=== PATIENT | male | born 1980 | race Caucasian/White ===

== ENCOUNTER 2023-12-19 11:27 | Emergency (ER) | payer OTHER, SELFPAY ==
[2023-12-19 11:32] VITALS: BP 160/68; PULSE 73; RESP 16; TEMP 37; O2SAT 100
--- NOTE | 2023-12-19 11:44 | ED.WOUNDLAC ---
HPI - Wound/Laceration General Chief Complaint: Wound/Laceration <BARB Gallagher Last Filed: 12/19/23 12:23> Stated Complaint: finger laceration <BARB Gallagher Last Filed: 12/19/23 12:23> Time Seen by Provider: 12/19/23 11:35 <BARB Gallagher Last Filed: 12/19/23 12:23> Source: patient <BARB Gallagher Last Filed: 12/19/23 12:23> Mode of arrival: ambulatory <BARB Gallagher Last Filed: 12/19/23 12:23> Limitations: no limitations <BARB Gallagher Last Filed: 12/19/23 12:23> History of Present Illness HPI narrative: This is a 43 year old male that presents to the ER for right 2nd finger laceration sustained yesterday. Reports [place] out the wound and closed it with super glue. He presented today for further management. He is unsure of his last tetanus vaccination. Denies decreased ROM or numbness. <BARB Gallagher Last Filed: 12/19/23 12:23> Related Data Home Medications: Home Medications Medication Instructions Recorded Confirmed fnzzpuii-nny-qgkqt acid 0.4 tablet PO 08/20/22 08/26/22 mg-lycopene 300 mcg-lutein 250 mcg tablet (Complete Multivitamin Adult 50 Plus) omega 5-hav-nxd-fish oil 1,200 mg cap PO 08/20/22 08/26/22 (144 mg-216 mg) capsule (Fish Oil) <BARB Gallagher Last Filed: 12/19/23 12:23> Allergies/Adverse Reactions: Allergies Allergy/AdvReac Type Severity Reaction Status Date / Time No Known Allergies Allergy Verified 12/19/23 11:34 <BARB Gallagher Last Filed: 12/19/23 12:23> Review of Systems Review of Systems: CONSTITUTIONAL: Denies fever SKIN: Reports laceration MUSCULOSKELETAL: Denies joint pain, or myalgia. NEUROLOGIC: Denies numbness <Nury Crow PA-C - Last Filed: 12/19/23 12:23> All systems reviewed & are unremarkable except as noted in HPI and below <Nury Crow PA-C - Last Filed: 12/19/23 12:23> PMFSH Past Medical History Medical History: Medical History Allergic rhinitis, unspecified Anxiety Major depressive disorder, recurrent, unspecified Obstructive sleep apnea <BARB Gallagher Last Filed: 12/19/23 12:23> Surgical History Surgical History: Surgical History S/P tendon repair right middle finger 1989 <Nury Crow PA-C - Last Filed: 12/19/23 12:23> Family History Family History: Family History Father No problems noted. Mother No problems noted. <Nury Crow PA-C - Last Filed: 12/19/23 12:23> Social History Social History: Social History Smoking status: Never smoker Alcohol intake: current Substance use: never Substance use type: does not use Lack of Transportation: No Lack of Food: Never True Current Housing: I Have Housing Concerned About Future Housing: No Difficulty Paying Gas/Electric Bills: No Difficulty Paying for Meds: No Currently Unemployed: No Education: Master's Degree or Higher Difficulty w/ Childcare or Family Care: No Living arrangements: with family Occupation/Education: occupation Gender identity (if verbalized by the patient): Male Sexual Orientation (if Verbalized by the Patient): Straight or Heterosexual Spiritual care concerns: No Agree to blood products: Yes <BARB Gallagher Last Filed: 12/19/23 12:23> Exam Narrative: GENERAL: Well-appearing, well-nourished, and in no acute distress. HEAD: Normocephalic, atraumatic. EYES: EOMI. EXTREMITIES: Normal range of motion. No edema. Right second finger with laceration of the proximal and middle phalanx, covered in a thick layer of glue SKIN: Warm, dry, no rash. NE
[2023-12-19] MEDS: TETANUS,DIPHTHERIA,AC PERTUSSIS ADULT (0.5 ML) BOOSTRIX IM (11:55)
[2023-12-19] MEDS: CEPHALEXIN 500 MG CAPSULE PO (12:44)
[2023-12-19] MEDS: levoFLOXacin 750 MG TABLET PO (12:45)
== END 2023-12-19 12:51 | disposition home or self-care (01) ==
PROVIDERS: Emergency Provider Physician Assistant; PCP Family Medicine
DX: S61.211A Laceration without foreign body of left index finger without damage to nail, initial encounter (principal); Z23 Encounter for immunization; G47.33 Obstructive sleep apnea (adult) (pediatric); W26.0XXA Contact with knife, initial encounter
CPT/HCPCS: 90471; 90715; 99283; A9270

== ENCOUNTER 2024-07-31 07:39 | Inpatient (IN) | payer OTHER, SELFPAY ==
[2024-07-31] VITALS (24 sets, daily range): BP systolic 123–158; BP diastolic 72–98; PULSE 88–98; RESP 15–151; TEMP 36.3–37.7; O2SAT 91–100; BMI 27.1
--- NOTE | ~2024-07-31 | CT_ITS ---
CT abdomen pelvis w con Ordering provider: Mani Moon III, DO History: 43 years Male with . rlq pain . Comparison: None. Technique: CT abdomen and pelvis with IV and without oral contrast. Automated exposure control and it erative reconstruction technique were employed. The dose-length product was 592.50 mGy-cm. 100 mL Omn ipaque 350 was given IV. Findings: VISUALIZED LOWER CHEST: Normal. UPPER ABDOMINAL ORGANS: Liver: Fat infiltration Gallbladder: Normal. Spleen: Normal. Stomach/duodenum: Normal. Pancreas: Normal. Adrenals: Normal. Kidneys: Normal. PELVIC ORGANS: The bladder is underfilled with thickened wall. Evaluation for cystitis advised. BOWEL AND MESENTERY: Colon: No evidence of diverticulitis. Fat stranding seen in the right lower quadrant with a hypodensi ty which is most likely small appendicular abscess measuring 2.7 x 1.9 CNM. Clinical correlation and follow-up advised. Small Bowel: Normal. No obstruction. Peritoneum/mesentery: No free air or free fluid. No mesenteric lymphadenopathy. Small lymph nodes in the right lower quadrant with the largest measuring 1 cm. RETROPERITONEUM: Normal aorta. No retroperitoneal lymphadenopathy. MUSCULOSKELETAL: Superficial soft tissues: The superficial soft tissues are normal. Bones: Normal spine. IMPRESSION: 1. Highly suggestive of appendicitis with appendicolith or abscess in the right lower quadrant area clinical correlation and follow-up advised. 2. Fat infiltration of the liver. Physician: Mani Moon III, DO Was notified with the result of the patient at 8:46 AM on July 31, 2024. Reviewed, dictated and finalized at location A. ORK TECHNOLOGY INSTRUCTOR IMPRESSION: 1. Highly suggestive of appendicitis with appendicolith or abscess in the righ t lower quadrant area clinical correlation and follow-up advised. 2. Fat infiltration of the liver. Physician: Mani Moon III, DO Was notified with the result of the patient at 8:46 AM on July 31, 2024.
--- NOTE | ~2024-07-31 | CT_ITS ---
EXAMINATION: CT abdomen pelvis wo con DATE: 08/04/2024 13:47 INDICATION: Increased drainage from surgical drain. TECHNIQUE: Computed tomography (CT) of the abdomen and pelvis was performed without intravenous contr ast. Automated exposure control and iterative reconstruction technique were employed. The dose-length product was 889.02 mGy-cm. COMPARISON: CT abdomen pelvis 07/31/2024 FINDINGS: The visualized portions of the lung bases demonstrate mild atelectasis. No pleural effusion . The heart size is normal. No pericardial effusion. There is diffuse hepatic steatosis. There is con trast in the gallbladder, which is normal in size. The spleen, pancreas, adrenal glands, and kidneys are normal. There is no urolithiasis. There are changes of appendectomy. There are multiple dilated l oops of small bowel without focal transition point, consistent with adynamic ileus. There are no path ologically enlarged lymph nodes. There is fat stranding in the right lower quadrant with foci of extr aluminal gas. There is a 2.1 x 0.9 x 3.1 cm fluid collection in the right lower quadrant. There is a surgical drain in the right lower quadrant. There is mild chronic anterior wedging of multiple verteb ral bodies. There is a hemangioma in T9 vertebral body. There is mild thoracic and lumbar spondylosis . Midline skin diane are noted. IMPRESSION: 1. 2.1 x 0.9 x 3.1 cm postoperative fluid collection in the right lower quadrant. 2. Adynamic ileus. Reviewed, dictated and finalized at location A. SWIND INSTRUMENT REPAIRER IMPRESSION: 1. 2.1 x 0.9 x 3.1 cm postoperative fluid collection in the right lower quadran t. 2. Adynamic ileus.
--- NOTE | ~2024-07-31 | XR_ITS ---
XR abdomen/kub 1V Ordering provider: JUAN J Alegria History: . Ileus, postop ruptured appendix . Comparison: None. FINDINGS: BOWEL: Dilated small bowel loops are seen. Postoperative changes and drainage catheter is seen. ORGANOMEGALY: None. SIGNIFICANT PATHOLOGIC CALCIFICATIONS: None. OTHER: No free air is seen under the diaphragm. IMPRESSION: Dilated small bowel loops suggestive of ileus versus obstruction. Follow-up advised. Reviewed, dictated and finalized at location A. RIAL RECLAIMER IMPRESSION: Dilated small bowel loops suggestive of ileus versus obstruction. Follow-up adv ised.
--- NOTE | ~2024-07-31 | XR_ITS ---
Supine and upright views of the abdomen Clinical history: Ileus COMPARISON: 08/02/2024 Findings: Multiple dilated small bowel loops are again present. Surgical diane are noted. No free a ir evident. No abnormal mass lesion or calcification is seen. Osseous structures are intact. Impression: Multiple dilated small bowel loops. Correlate for small bowel obstruction versus ileus. Reviewed, dictated and finalized at [facility]. BRUSH ASSEMBLER Impression: Multiple dilated small bowel loops. Correlate for small bowel obstruction versu s ileus.
[2024-07-31 08:02] LABS: Basophils Absolute Auto 0.1 K/mm3 (0.0-0.1); Basophils Percent Auto 0.5 % (0.2-1.2); Eosinophils Percent Auto 0.2 % (0-4.4); Hematocrit 44.4 % (42.0-52.0); Hemoglobin 15.1 g/dL (14.0-18.0); Immature Granulocyte Absolute 0.05 K/mm3 (0.00-0.031); Immature Granulocyte Percent A 0.4 % (0-0.5); Lymphocytes Absolute Auto 2.13 K/mm3 (0.9-3.2); Lymphocytes Percent Auto 16.9 % (18.3-44.2); Mean Corpuscular Hemoglobin 30.3 pg (26-34); Mean Platelet Volume 8.5 fl (7.4-10.4); Monocytes Absolute Auto 1.4 K/mm3 (0.1-0.6); Platelet Count Result 290 k/mm3 (150-375); Red Blood Count 4.99 M/mm3 (4.6-6.20); Red Cell Distribution Width 12.2 % (11.5-14.5); White Blood Count 12.6 K/mm3 (4.5-10.0)
--- NOTE | 2024-07-31 08:04 | ED.ABDPAIN ---
HPI - Abdominal Pain General Chief Complaint: Abdominal Pain Stated Complaint: abdominal pain Time Seen by Provider: 07/31/24 07:59 History of Present Illness HPI narrative: Pt presents with rlq abdominal pain this morning. Pt says he had stomach flu a couple of weeks ago and had intermittent, crampy abdominal pain off and on since but localized to rlq this morning. Pt feels bloated as well. Related Data Home Medications ?Medication ?Instructions ?Recorded ?Confirmed ?Last Taken ?Type hcdmztad-seu-sxpta acid 0.4 tablet PO 08/20/22 08/26/22 Unknown History mg-lycopene 300 mcg-lutein 250 mcg tablet (Complete Multivitamin Adult 50 Plus) omega 7-raj-pjj-fish oil 1,200 mg cap PO 08/20/22 08/26/22 Unknown History (144 mg-216 mg) capsule (Fish Oil) Allergies Allergy/AdvReac Type Severity Reaction Status Date / Time No Known Allergies Allergy Verified 07/31/24 15:15 Review of Systems Review of Systems: All systems reviewed & are unremarkable except as noted in HPI and below PMFSH Past Medical History Medical History (Updated 07/31/24 @ 12:28 by Mani Moon III, DO) Obstructive sleep apnea Major depressive disorder, recurrent, unspecified Anxiety Allergic rhinitis, unspecified Surgical History Surgical History S/P tendon repair right middle finger 1990 Family History Family History Father No problems noted. Mother No problems noted. Social History Social History Smoking status: Never smoker Alcohol intake: current Alcohol use details: 6-10 beers per day Substance use: never Substance use type: does not use Lack of Transportation: No Lack of Food: Never True Current Housing: I Have Housing Concerned About Future Housing: No Difficulty Paying Gas/Electric Bills: No Difficulty Paying for Meds: No Currently Unemployed: No Education: Master's Degree or Higher Difficulty w/ Childcare or Family Care: No Living arrangements: with family Occupation/Education: occupation Gender identity (if verbalized by the patient): Male Sexual Orientation (if Verbalized by the Patient): Straight or Heterosexual Spiritual care concerns: No Agree to blood products: Yes Exam Const: General: healthy appearing and no acute distress Nutritional Appearance: well nourished Orientation/consciousness: patient oriented x3 Limitations: no limitations Resp: Effort & Inspection: normal respiratory effort Auscultation: clear to auscultation bilaterally Cardio: Rate: regular rate Rhythm: regular rhythm GI: GI Palp: Yes Soft to palpation and Yes Tenderness to palpation present (GI) (rlq but lateral to mcburney's) Auscultation: normal bowel sounds : General: Yes bladder normal to palpation Back/Spine/Pelvis: Back: no CVA tenderness Skin: General skin exam: normal color Rashes: no rashes Wounds: no wounds Neuro: General: patient oriented x3, moves all extremities, no meningeal signs, no focal motor deficits and CN's II-XI intact bilaterally Cranial nerves: Yes Nystagmus not present Speech: normal speech Extrem: General: normal to inspection and no clubbing, cyanosis or edema Psych: Mental Status: mental status grossly normal Affect: normal affect Attitude: cooperative Course Vital Signs Vital signs: Vital Signs Temperature 98.9 F 07/31/24 07:50 Pulse Rate 98 07/31/24 07:50 Respiratory Rate 18 07/31/24 07:50 Blood Pressure 143/91 H 07/31/24 07:50 Pulse Oximetry 100 07/31/24 07:50 Oxygen Delivery Room Air 07/31/24 07:50 Temperature 99.8 F H 07/31/24 17:36 Pulse Rate 92 07/31/24 17:45 Respiratory Rate 151 H 07/31/24 17:45 Blood Pressure 126/76 07/31/24 17:45 Pulse Oximetry 97 07/31/24 17:45 Oxygen Delivery Simple Face Mask 07/31/24 17:45 Oxygen Flow Rate 5 07/31/24 17:45 MDM - Abdominal Pain MDM Narrative Medical decision making narrative: Pt presents with rlq abdomina pain. Pt has had intermittent abd pain for two weeks since Gi bug now in rlq. will need to get labs and ua and CT to rule out appy. Pt has appendicitis with possible abscess. discussed with dr mendez and will check with OR. Lab Data 07/31/24 07:54 07/31/24 07:54 Labs: Lab Results 12/16/24 12/16/24 12/16/24 Range/Units 07:54 08:37 08:41 WBC 12.6 H (4.5-10.0) K/mm3 RBC 4.99 (4.6-6.20) M/mm3 Hgb 15.1 (14.0-18.0) g/dL Hct 44.4 (42.0-52.0) % MCV 89.0 (80-100) fl MCH 30.3 (26-34) pg MCHC 34.0 (32-36) g/dl RDW 12.2 (11.5-14.5) % Plt Count 290 (150-375) k/mm3 MPV 8.5 (7.4-10.4) fl Immature Gran % (Auto) 0.4 (0-0.5) % Neut % (Auto) 71.0 (45.5-73.1) % Lymph % (Auto) 16.9 L (18.3-44.2) % [place] % (Auto) 11.0 H (2.6-8.5) % Eos % (Auto) 0.2 (0-4.4) % Baso % (Auto) 0.5 (0.2-1.2) % Lymph # (Auto) 2.13 (0.9-3.2) K/mm3 [place] # (Auto) 1.4 H (0.1-0.6) K/mm3 Eos # (Auto) 0.0 (0-0.3) K/mm3 Baso # (Auto) 0.1 (0.0-0.1) K/mm3 Abs Immat Gran (auto) 0.05 H (0.00-0.031) K/mm3 Absolute Neuts (auto) 9.0 H (1.3-6.7) K/mm3 Absolute Nucleated RBC 0.000 (0.0-0.012) K/mm3 Nucleated RBC % 0.0 (0.0-0.2) % PT (11.1-14.7) Seconds INR APTT (22.3-36.8) Seconds Sodium 136 L (137-145) mmol/L Potassium 4.2 (3.4-5.0) mmol/L Chloride 105 (98-107) mmol/L Carbon Dioxide 26 (22-30) mmol/L Anion Gap 5 (4-12) mmol/L BUN 9 (9-20) mg/dL Creatinine 0.90 (0.7-1.3) mg/dL Estim Creat Clear Calc 107 ml/min Estimated GFR > 60 (59 - ) Glucose 119 H (65-110) mg/dL Lactic Acid 0.7 (0.7-2.0) mmol/L Calcium 9.3 (8.4-10.2) mg/dL Total Bilirubin 1.1 (0.2-1.3) mg/dL AST 29 (17-59) U/L ALT 34 (6-50) U/L Alkaline Phosphatase 62 (38-126) U/L Total Protein 8.0 (6.3-8.2) g/dL Albumin 4.6 (3.5-5.1) g/dL Lipase 88 (23-300) U/L Urine Color Yellow (Yellow) Urine Appearance Clear (Clear) Urine pH 7.5 (5.0-9.0) Ur Specific [place] > 1.045 H (1.001-1.035) Urine Protein Trace (Negative) mg/dL Urine Glucose (UA) Negative (Negative) mg/dL Urine Ketones Negative (Negative) mg/dL Ur Blood (Man) Negative (Negative) Urine Nitrate Negative (Negative) Urine Bilirubin Negative (Negative) Urine Urobilinogen 0.2 (<2.0) mg/dL Leukocyte Esterase Rfl Negative (Negative) MARLA/UL Urine RBC 0-2 (0-2) /hpf Urine WBC 0-5 (0-3) /hpf Ur Squamous Epith Cells None seen (Few) /hpf Urine Bacteria None seen /hpf Urine Casts 0-2 07/31/24 Range/Units 08:49 WBC (4.5-10.0) K/mm3 RBC (4.6-6.20) M/mm3 Hgb (14.0-18.0) g/dL Hct (42.0-52.0) % MCV (80-100) fl MCH (26-34) pg MCHC (32-36) g/dl RDW (11.5-14.5) % Plt Count (150-375) k/mm3 MPV (7.4-10.4) fl Immature Gran % (Auto) (0-0.5) % Neut % (Auto) (45.5-73.1) % Lymph % (Auto) (18.3-44.2) % [place] % (Auto) (2.6-8.5) % Eos % (Auto) (0-4.4) % Baso % (Auto) (0.2-1.2) % Lymph # (Auto) (0.9-3.2) K/mm3 [place] # (Auto) (0.1-0.6) K/mm3 Eos # (Auto) (0-0.3) K/mm3 Baso # (Auto) (0.0-0.1) K/mm3 Abs Immat Gran (auto) (0.00-0.031) K/mm3 Absolute Neuts (auto) (1.3-6.7) K/mm3 Absolute Nucleated RBC (0.0-0.012) K/mm3 Nucleated RBC % (0.0-0.2) % PT 14.4 (11.1-14.7) Seconds INR 1.1 APTT 25.4 (22.3-36.8) Seconds Sodium (137-145) mmol/L Potassium (3.4-5.0) mmol/L Chloride (98-107) mmol/L Carbon Dioxide (22-30) mmol/L Anion Gap (4-12) mmol/L BUN (9-20) mg/dL Creatinine (0.7-1.3) mg/dL Estim Creat Clear Calc ml/min Estimated GFR (59 - ) Glucose (65-110) mg/dL Lactic Acid (0.7-2.0) mmol/L Calcium (8.4-10.2) mg/dL Total Bilirubin (0.2-1.3) mg/dL AST (17-59) U/L ALT (6-50) U/L Alkaline Phosphatase (38-126) U/L Total Protein (6.3-8.2) g/dL Albumin (3.5-5.1) g/dL Lipase (23-300) U/L Urine Color (Yellow) Urine Appearance (Clear) Urine pH (5.0-9.0) Ur Specific [place] (1.001-1.035) Urine Protein (Negative) mg/dL Urine Glucose (UA) (Negative) mg/dL Urine Ketones (Negative) mg/dL Ur Blood (Man) (Negative) Urine Nitrate (Negative) Urine Bilirubin (Negative) Urine Urobilinogen (<2.0) mg/dL Leukocyte Esterase Rfl (Negative) MARLA/UL Urine RBC (0-2) /hpf Urine WBC (0-3) /hpf Ur Squamous Epith Cells (Few) /hpf Urine Bacteria /hpf Urine Casts Imaging Data Radiologist's impression: ITS Impressions Abdomen/Pelvis CT 07/31/24 08:31 IMPRESSION: 1. Highly suggestive of appendicitis with appendicolith or abscess in the right lower quadrant area clinical correlation and follow-up advised. 2. Fat infiltration of the liver. Physician: Mani Moon III, DO Was notified with the result of the patient at 8:46 AM on July 31, 2024. Discharge Plan Discharge Clinical Impression: Acute appendicitis with perforation, localized peritonitis, and abscess Patient Disposition: Still a Patient Condition: Stable
[2024-07-31 08:15] LABS: Alanine Aminotransferase 34 U/L (6-50); Albumin Level 4.6 g/dL (3.5-5.1); Alkaline Phosphatase 62 U/L (38-126); Anion Gap 5 mmol/L (4-12); Aspartate Amino Transferase 29 U/L (17-59); Bilirubin,Total 1.1 mg/dL (0.2-1.3); Blood Urea Nitrogen 9 mg/dL (9-20); Calcium 9.3 mg/dL (8.4-10.2); Carbon Dioxide 26 mmol/L (22-30); Chloride 105 mmol/L (98-107); Estimated CRCL calculation 107 ml/min; Estimated Glomerular Filt Rate > 60; Glucose 119 mg/dL (65-110); Lipase 88 U/L (23-300); Potassium 4.2 mmol/L (3.4-5.0); Sodium 136 mmol/L (137-145)
[2024-07-31] MEDS: KETOROLAC 30 MG/ML VIAL (*BKC) IV PUSH (08:49)
[2024-07-31 08:50] LABS: Add Urine Microscopic? YES; Appearance Urine Clear (Clear); Bacteria Urine None Seen /hpf; Bilirubin Urine Negative (Negative); Blood Urine Negative (Negative); Color Urine Yellow (Yellow); Glucose Urine UA Negative (Negative); Ketones Urine Negative (Negative); Leukocyte Esterase Ur Negative LEU/UL (Negative); Nitrate Urine Negative (Negative); Non Pathogenic Casts 0-2; Protein Urine Trace mg/dL (Negative); RBC Urine 0-2 /hpf (0-2); Specific Grav Ur > 1.045 (1.001-1.035); Squamous Epithelial Cell Urine None Seen /hpf (Few); Urobilinogen Urine 0.2 mg/dL (<2.0); WBC Urine 0-5 /hpf (0-3); pH Urine 7.5 (5.0-9.0)
[2024-07-31 09:01] LABS: Lactic Acid Reflex 0.7 mmol/L (0.7-2.0)
[2024-07-31 09:06] LABS: INR 1.1; Partial Thromboplastin Time 25.4 Seconds (22.3-36.8); Prothrombin Time 14.4 Seconds (11.1-14.7)
--- NOTE | 2024-07-31 11:34 | P.HP_ITS ---
H&P: HPI History of Present Illness Date/Time: 07/31/24 11:34 Chief Complaint: Abdominal pain Narrative: This is a 43-year-old man who presented to the ED today due to complaints of abdominal pain. He reports having periumbilical and upper abdominal pain that started 2 weeks ago. Initially, his pain was very severe and he had nausea and dry heaving. He thought he had food poisoning and chose to monitor his symptoms at home. Over the next 24-48 hours, his abdominal pain was less severe and he overall was feeling better. Since that acute episode, he has had persistent cramping periumbilical abdominal pain that was intermittent throughout the day. He has felt bloated and reports abdominal distension and intermittent nausea. His bowels have been moving normally. He denies any vomiting, diarrhea, fever, or chills. Yesterday, he felt the bloating was worse and his cramping abdominal pain actually woke him up throughout the night. This morning, when he woke up, he noticed some right lower quadrant tenderness, which prompted him to come to the ED for evaluation due to concerns for appendicitis. Vital signs stable in the ED. Labs showed a white blood cell count [id number]. Lactic acid normal. CT scan shows findings highly suggestive of appendicitis with right lower quadrant abscess measuring 2.7 cm. He is now seen in the ED for surgical evaluation. Review of Systems Review of Systems: All systems reviewed & are unremarkable except as noted in HPI and below PMFSH Past Medical History Medical History (Updated 07/31/24 @ 11:39 by JUAN J Alegria) Obstructive sleep apnea Major depressive disorder, recurrent, unspecified Anxiety Allergic rhinitis, unspecified Surgical History Surgical History S/P tendon repair right middle finger 1989 Family History Family History Father No problems noted. Mother No problems noted. Social History Social History Smoking status: Never smoker Alcohol intake: current Alcohol use details: 6-10 beers per day Substance use: never Substance use type: does not use Lack of Transportation: No Lack of Food: Never True Current Housing: I Have Housing Concerned About Future Housing: No Difficulty Paying Gas/Electric Bills: No Difficulty Paying for Meds: No Currently Unemployed: No Education: Master's Degree or Higher Difficulty w/ Childcare or Family Care: No Living arrangements: with family Occupation/Education: occupation Gender identity (if verbalized by the patient): Male Sexual Orientation (if Verbalized by the Patient): Straight or Heterosexual Spiritual care concerns: No Agree to blood products: Yes Meds Home Medications and Allergies Home Medications ?Medication ?Instructions ?Recorded ?Confirmed ?Type gwcblgaq-mdp-bjkhy acid 0.4 tablet PO 08/20/22 08/26/22 History mg-lycopene 300 mcg-lutein 250 mcg tablet (Complete Multivitamin Adult 50 Plus) omega 5-dkd-hgy-fish oil 1,200 mg cap PO 08/20/22 08/26/22 History (144 mg-216 mg) capsule (Fish Oil) cephalexin 500 mg capsule 500 mg PO Q6H 5 days #20 caps 12/19/23 Rx levofloxacin 750 mg tablet 750 mg PO DAILY 5 days #5 tabs 12/19/23 Rx Allergies Allergy/AdvReac Type Severity Reaction Status Date / Time No Known Allergies Allergy Verified 07/31/24 07:40 Vital Signs Vital Signs - 24 hr 07/31/24 07:50 07/31/24 11:01 Temperature 98.9 F Pulse Rate 98 94 Respiratory Rate 18 18 Blood Pressure 143/91 H 129/87 Pulse Oximetry 100 98 Oxygen Delivery Room Air Exam Const: General: comfortable and no acute distress Nutritional Appearance: average body habitus Orientation/consciousness: patient oriented x3 HENMT: Head: normocephalic and atraumatic Ears: hearing grossly normal bilaterally Mouth: Yes moist mucous membranes Eyes: General: appearance normal, both eyes and all related structures Pupils: Equal, round and reactive pupils present Neck: Neck: normal visual inspection and full ROM Resp: Effort & Inspection: no respiratory distress Auscultation: clear to auscultation bilaterally Cardio: Rate: regular rate Rhythm: regular rhythm Peripheral pulses: Peripheral pulses 2+ throughout GI: Inspection: non-distended, no scars and no visible herniation GI Palp: Yes Soft to palpation, Yes Tenderness to palpation present (GI) (Right lower quadrant), No Guarding due to palpation present (GI), Yes No hepatosplenomegaly present and No Rebound tenderness present Percussion: Yes normal to percussion Auscultation: normal bowel sounds Skin: General skin exam: normal color Neuro: General: moves all extremities and no focal motor deficits Speech: normal speech Motor exam (neuro): 5/5 motor strength present throughout Extrem: General: normal to inspection and no edema Psych: Mental Status: mental status grossly normal Attitude: cooperative Insight: Good insight present (Psych) Judgement: Good judgement present (Psych) H&P: Results Labs Labs: Short CBC 07/31/24 Range/Units 07:54 WBC 12.6 H (4.5-10.0) K/mm3 Hgb 15.1 (14.0-18.0) g/dL Hct 44.4 (42.0-52.0) % Plt Count 290 (150-375) k/mm3 BMP 07/31/24 07:54 Sodium 136 L Potassium 4.2 Chloride 105 Carbon Dioxide 26 BUN 9 Creatinine 0.90 Glucose 119 H Calcium 9.3 Liver Function 07/31/24 Range/Units 07:54 Total Bilirubin 1.1 (0.2-1.3) mg/dL AST 29 (17-59) U/L ALT 34 (6-50) U/L Alkaline Phosphatase 62 (38-126) U/L Albumin 4.6 (3.5-5.1) g/dL Urine 07/31/24 Range/Units 08:41 Urine Color Yellow (Yellow) Urine Appearance Clear (Clear) Urine pH 7.5 (5.0-9.0) Ur Specific [place] > 1.045 H (1.001-1.035) Urine Protein Trace (Negative) mg/dL Urine Glucose (UA) Negative (Negative) mg/dL Imaging CT scan - abdomen: Radiologist's impression: ITS Impressions Abdomen/Pelvis CT 07/31/24 08:31 IMPRESSION: 1. Highly suggestive of appendicitis with appendicolith or abscess in the right lower quadrant area clinical correlation and follow-up advised. 2. Fat infiltration of the liver. Physician: Mani Moon III, DO Was notified with the result of the patient at 8:46 AM on July 31, 2024. Assessment and Plan Assessment and plan (1) Acute appendicitis with perforation, localized peritonitis, and abscess: Code(s): K35.33 - Acute appendicitis with perforation, localized peritonitis, and gangrene, with abscess Status: Acute Assessment and Plan: CT scan reviewed with radiologist. The distal appendix is visualized and dilated with inflammatory stranding around this area. He also has what appears to be an abscess measuring a little over 2 cm at the base of the appendix where it appears perforated. He otherwise appears stable and is not septic. He has been having ongoing symptoms for about 2 weeks. I discussed the case with Dr. Franz and discussed both nonoperative versus surgical treatment options in detail with the patient. We could consider monitoring with IV antibiotics and serial abdominal exams and labs versus proceeding with a laparoscopic appendectomy and continue IV antibiotics and monitoring. Discussed that he would likely have a KENNEDY drain following surgery. We discussed at length the risks versus benefits of both options. We also discussed the details of the procedure, risks, benefits, alternatives, and expected recovery. He wishes to proceed with surgery. He will be admitted to our service and started on IV antibiotics. We will keep him NPO for now and continue IV fluids, analgesics, and antiemetics as needed. (2) Chronic recurrent major depressive disorder: Code(s): F33.9 - Major depressive disorder, recurrent, unspecified Status: Acute (3) Heavy alcohol use: Code(s): F10.90 - Alcohol use, unspecified, uncomplicated Status: Acute Assessment and Plan: Patient admits to drinking 6-10 beers per day. No current withdrawal symptoms, but will continue to monitor. Recommend CIWA postoperatively. (4) Obstructive sleep apnea: Code(s): G47.33 - Obstructive sleep apnea (adult) (pediatric) Status: Chronic Plan I have discussed the patient's case and plan of care with Dr. Franz.
--- NOTE | 2024-07-31 12:41 | PC.NURSE ---
Spoke with OR nurse, Eula, and she states they will try and get the patient for surgery by 1430 this afternoon.
[2024-07-31] MEDS: PIPERACILLN/TAZ 3.375GM/NS50ML 3.375 GM/50 ML BAG IVPB ×2 (13:20→20:04)
--- NOTE | 2024-07-31 13:59 | WPDHPUPDATE1 ---
History and Physical Update Update Date/Time: 07/31/24 13:59 History and Physical has been reviewed, including an updated exam of the patient. There are NO changes in the patient's condition. Risks, benefits, and alternatives have been discussed and questions answered. Patient agrees to proceed with procedure.
--- NOTE | 2024-07-31 14:32 | ADMGEN ---
This patient, Yehuda Jones, was admitted to [facility] Surg Room 300-01. Patient/family oriented to hospital policies and general routines including ID bracelet, bed and alarms, visiting hours, pain management, procedures, bathroom and other care routines, personal items, smoking policy, room service/diet, and visiting hours. Information on how to activate the Rapid Response Team has been discussed. Patient/Family are encouraged to report perceived risks to care and to ask questions if they do not understand what they are told or what they should do.
--- NOTE | 2024-07-31 14:59 | P.PNAN_ITS ---
Anes - Initial Pre Proc Eval Procedure: Operation Date: 07/31/24 16:00 Proposed Procedures p Laparoscopic Appendectomy - Berna Franz MD Date/Time: 07/31/24 14:59 Surgeon: Berna Franz MD Pre Op Diagnosis: appendicitis Patient Data Age: 43 Gender: M Height: 1.85 m Weight: 93.2 kg Last Vital Signs Temp 37.2 C 07/31/24 07:50 Pulse 91 07/31/24 12:29 Resp 18 07/31/24 12:29 BP 131/98 H 07/31/24 12:29 Pulse Ox 98 07/31/24 12:29 O2 Del Method Room Air 07/31/24 07:50 Allergies Allergy/AdvReac Type Severity Reaction Status Date / Time No Known Allergies Allergy Verified 07/31/24 15:15 Home Medications ?Medication ?Instructions ?Recorded ?Confirmed ?Type xcbeqntq-qfz-wtbri acid 0.4 tablet PO 08/20/22 08/26/22 History mg-lycopene 300 mcg-lutein 250 mcg tablet (Complete Multivitamin Adult 50 Plus) omega 6-kku-wty-fish oil 1,200 mg cap PO 08/20/22 08/26/22 History (144 mg-216 mg) capsule (Fish Oil) cephalexin 500 mg capsule 500 mg PO Q6H 5 days #20 caps 12/19/23 Rx levofloxacin 750 mg tablet 750 mg PO DAILY 5 days #5 tabs 12/19/23 Rx Laboratory Tests 07/31/24 07/31/24 07/31/24 07:54 08:37 08:41 WBC 12.6 H K/mm3 (4.5-10.0) RBC 4.99 M/mm3 (4.6-6.20) Hgb 15.1 g/dL (14.0-18.0) Hct 44.4 % (42.0-52.0) MCV 89.0 fl (80-100) MCH 30.3 pg (26-34) MCHC 34.0 g/dl (32-36) RDW 12.2 % (11.5-14.5) Plt Count 290 k/mm3 (150-375) MPV 8.5 fl (7.4-10.4) Immature Gran % (Auto) 0.4 % (0-0.5) Neut % (Auto) 71.0 % (45.5-73.1) Lymph % (Auto) 16.9 L % (18.3-44.2) [place] % (Auto) 11.0 H % (2.6-8.5) Eos % (Auto) 0.2 % (0-4.4) Baso % (Auto) 0.5 % (0.2-1.2) Lymph # (Auto) 2.13 K/mm3 (0.9-3.2) [place] # (Auto) 1.4 H K/mm3 (0.1-0.6) Eos # (Auto) 0.0 K/mm3 (0-0.3) Baso # (Auto) 0.1 K/mm3 (0.0-0.1) Abs Immat Gran (auto) 0.05 H K/mm3 (0.00-0.031) Absolute Neuts (auto) 9.0 H K/mm3 (1.3-6.7) Absolute Nucleated RBC 0.000 K/mm3 (0.0-0.012) Nucleated RBC % 0.0 % (0.0-0.2) PT INR APTT Sodium 136 L mmol/L (137-145) Potassium 4.2 mmol/L (3.4-5.0) Chloride 105 mmol/L (98-107) Carbon Dioxide 26 mmol/L (22-30) Anion Gap 5 mmol/L (4-12) BUN 9 mg/dL (9-20) Creatinine 0.90 mg/dL (0.7-1.3) Estim Creat Clear Calc 107 ml/min Estimated GFR > 60 (59 - ) Glucose 119 H mg/dL (65-110) Lactic Acid 0.7 mmol/L (0.7-2.0) Calcium 9.3 mg/dL (8.4-10.2) Total Bilirubin 1.1 mg/dL (0.2-1.3) AST 29 U/L (17-59) ALT 34 U/L (6-50) Alkaline Phosphatase 62 U/L (38-126) Total Protein 8.0 g/dL (6.3-8.2) Albumin 4.6 g/dL (3.5-5.1) Lipase 88 U/L (23-300) Urine Color Yellow (Yellow) Urine Appearance Clear (Clear) Urine pH 7.5 (5.0-9.0) Ur Specific [place] > 1.045 H (1.001-1.035) Urine Protein Trace mg/dL (Negative) Urine Glucose (UA) Negative mg/dL (Negative) Urine Ketones Negative mg/dL (Negative) Ur Blood (Man) Negative (Negative) Urine Nitrate Negative (Negative) Urine Bilirubin Negative (Negative) Urine Urobilinogen 0.2 mg/dL (<2.0) Leukocyte Esterase Rfl Negative MARLA/UL (Negative) Urine RBC 0-2 /hpf (0-2) Urine WBC 0-5 /hpf (0-3) Ur Squamous Epith Cells None seen /hpf (Few) Urine Bacteria None seen /hpf Urine Casts 0-2 07/31/24 08:49 WBC RBC Hgb Hct MCV MCH MCHC RDW Plt Count MPV Immature Gran % (Auto) Neut % (Auto) Lymph % (Auto) [place] % (Auto) Eos % (Auto) Baso % (Auto) Lymph # (Auto) [place] # (Auto) Eos # (Auto) Baso # (Auto) Abs Immat Gran (auto) Absolute Neuts (auto) Absolute Nucleated RBC Nucleated RBC % PT 14.4 Seconds (11.1-14.7) INR 1.1 APTT 25.4 Seconds (22.3-36.8) Sodium Potassium Chloride Carbon Dioxide Anion Gap BUN Creatinine Estim Creat Clear Calc Estimated GFR Glucose Lactic Acid Calcium Total Bilirubin AST ALT Alkaline Phosphatase Total Protein Albumin Lipase Urine Color Urine Appearance Urine pH Ur Specific [place] Urine Protein Urine Glucose (UA) Urine Ketones Ur Blood (Man) Urine Nitrate Urine Bilirubin Urine Urobilinogen Leukocyte Esterase Rfl Urine RBC Urine WBC Ur Squamous Epith Cells Urine Bacteria Urine Casts Patient hx anesthesia problems: post op nausea/vomiting Family hx anesthesia problems: none Results Review: All pre-operative results and documents have been reviewed as part of the pre- operative evaluation. [facility] Past Medical History Medical History (Updated 07/31/24 @ 12:28 by Mani Moon III, DO) Obstructive sleep apnea Major depressive disorder, recurrent, unspecified Anxiety Allergic rhinitis, unspecified Surgical History Surgical History S/P tendon repair right middle finger 1989 Family History Family History Father No problems noted. Mother No problems noted. Social History Social History Smoking status: Never smoker Alcohol intake: current Alcohol use details: 6-10 beers per day Substance use: never Substance use type: does not use Lack of Transportation: No Lack of Food: Never True Current Housing: I Have Housing Concerned About Future Housing: No Difficulty Paying Gas/Electric Bills: No Difficulty Paying for Meds: No Currently Unemployed: No Education: Master's Degree or Higher Difficulty w/ Childcare or Family Care: No Living arrangements: with family Occupation/Education: occupation Gender identity (if verbalized by the patient): Male Sexual Orientation (if Verbalized by the Patient): Straight or Heterosexual Spiritual care concerns: No Agree to blood products: Yes Anes - Eval Final PreProcedure Day of Procedure 07/31/24 14:59 Patient weight: overweight Heart: regular rate and rhythm Lungs: clear to auscultation Airway: Mallampati scale class II Neurological: alert and oriented Last oral intake: >/= 8 hours ASA classification: III Emergent: no Anesthetic plan: proceed Anesthesia type and monitoring: general ETT and standard monitoring Results Review: All pre-operative results and documents have been reviewed as part of the pre- operative evaluation. Informed Consent: The patient's anesthetic plan and its attendant risks and benefits were discussed with the patient/family/POA. Questions were solicited and answers provided to the satisfaction of the patient/family/POA.
--- NOTE | 2024-07-31 17:50 | W.PM.PROC2 ---
Procedure Note - Detailed Date of Procedure 07/31/24 Pre-op Diagnosis Acute appendicitis Post-op Diagnosis Other ( right lower quadrant inflammatory mass) Procedure Performed diagnostic laparoscopy converted to hand assisted laparoscopic ileocecectomy with mobilization of the hepatic flexure Surgeon Berna Franz MD Anesthesia General and Local Indications 43-year-old male presenting to the emergency department complaining of a 2 week history of lower abdominal pain. Workup in the emergency department, including imaging, was suggestive of acute appendicitis with possible perforation. Findings Right lower quadrant inflammatory mass involving the terminal ileum and cecum, appendix not obviously visualized Description of Procedure The patient was taken to the operating room and placed in the supine position. After adequate induction of general anesthesia, the patient was prepped and draped in the normal sterile fashion. A time-out was then done to verify the patient's identity, as well as the procedure being performed. I began by making a 5 mm incision in the infraumbilical region. Through this a Veress needle was placed in the peritoneal cavity. CO2 gas was then insufflated. After adequate pneumoperitoneum was achieved, the Veress needle was removed and a 5 mm Optiview trocar was placed under direct visualization. I then placed a laparoscopic through this trocar site under direct visualization placed a further 5 mm suprapubic port, as well as a 12 mm port in the left lower abdomen. At this point the cecum was identified, a large inflammatory mass was noted in the right lower quadrant. This mass was covered and tethered by the terminal ileum, as well as the cecum. Using very careful blunt dissection, slowly began to peel away the covering intestines. The cecum and terminal ileum covering the area was very friable and inflamed. I then was able to identify a large inflammatory mass with some purulent fluid within the cavity. I continued to dissect this area and could not visualize anything resembling the appendix. Given this finding, the decision was made to place a hand port for further dissection. The 5 mm infraumbilical port was converted to a hand port. I then was able to place my hand in and examine the right lower quadrant. This inflammatory mass was still very tethered to this area and difficult to dissect. There was also noted to be friablabilty of the terminal ileum and cecum in the area of the dissection. I then made the decision to go ahead and perform an ileocecectomy. I took down the lateral attachments of the cecum and ascending colon. I then went ahead and took down the hepatic flexure to allow mobilization for anastomosis. The terminal ileum proximal to the area of inflammation was noted to be unremarkable. I then desufflated the abdomen and extracorporeal lysed the area in the right lower quadrant. Even upon grossly examining the area, I was still unable to visualize the appendix. I then transected the ileum proximal to the area of inflammation with a GHISLAINE 75 stapler. The distal cecum and ascending colon were transected using the 75 GHISLAINE stapler. Then used the LigaSure device to take down the mesenteric attachments of the ileo cecectomy specimen. The specimen was then sent to pathology for further review. I then went ahead and completed a [id number] functional end-to-end anastomosis between the ileum and ascending colon. Once completed the anastomosis was noted to be tension-free and widely patent. I then copiously irrigated the abdomen. No other obvious pathology was noted. I then placed a drain in the right lower quadrant coming out through the 5 mm suprapubic port. The fascia of the hand port site was closed with 1. PDS sutures x2. All incisions were then closed with skin diane. The patient tolerated the procedure well and was extubated postoperatively. He will be sent to the recovery room in stable condition. Estimated Blood Loss 100 Drains Yes Pathology Yes Complications No immediate complications Condition Stable Disposition PACU [facility] Billing Surgery - Charge Forward: Surgery Billing
[2024-07-31] MEDS: fentaNYL CITRATE INJ (*CRX) 100 MCG/2 ML VIAL 25 MCG IV PUSH ×5 (18:06→18:52)
[2024-07-31] MEDS: ONDANSETRON INJ 4 MG/2 ML VIAL IV PUSH (18:10)
--- NOTE | 2024-07-31 18:15 | ADMGEN ---
This patient, Yehuda Jones, was admitted to 3 [facility] Surg Room 300-01 at 1400 Patient/family oriented to hospital policies and general routines including ID bracelet, bed and alarms, visiting hours, pain management, procedures, bathroom and other care routines, personal items, smoking policy, room service/diet, and visiting hours. Information on how to activate the Rapid Response Team has been discussed. Patient/Family are encouraged to report perceived risks to care and to ask questions if they do not understand what they are told or what they should do.
[2024-07-31 18:46] LABS: Hepatitis B Surface Antigen Negative (Negative)
[2024-07-31 19:04] LABS: HIV 1/2 Ab P24 Ag Result Negative (Negative); Hepatitis C Virus Antibody Negative (Negative)
[2024-07-31] MEDS: FAMOTIDINE 20 MG/2 ML VIAL IV PUSH (20:04)
[2024-07-31] MEDS: LACTATED RINGERS 1,000 ML 100 ML IV CONT (20:04)
[2024-07-31] MEDS: HYDROmorphone HCL INJ (*CRX) 1 MG/ML SYR IV PUSH ×2 (20:06→23:16)
[2024-08-01] VITALS (8 sets, daily range): BP systolic 125–153; BP diastolic 78–87; PULSE 80–100; RESP 16–20; TEMP 36.5–37.1; O2SAT 93–100
[2024-08-01] MEDS: PIPERACILLN/TAZ 3.375GM/NS50ML 3.375 GM/50 ML BAG IVPB ×4 (01:45→19:42)
[2024-08-01] MEDS: HYDROmorphone HCL INJ (*CRX) 1 MG/ML SYR 0.5 MG IV PUSH (02:11)
[2024-08-01 06:10] LABS: Hematocrit 40.8 % (42.0-52.0); Hemoglobin 13.5 g/dL (14.0-18.0); Mean Corpuscular HGB Conc 33.1 g/dl (32-36); Mean Corpuscular Hemoglobin 30.3 pg (26-34); Mean Corpuscular Volume 91.7 fl (80-100); Platelet Count Result 331 k/mm3 (150-375); Red Blood Count 4.45 M/mm3 (4.6-6.20); Red Cell Distribution Width 12.2 % (11.5-14.5)
[2024-08-01 06:21] LABS: Anion Gap 2 mmol/L (4-12); Blood Urea Nitrogen 9 mg/dL (9-20); Calcium 8.9 mg/dL (8.4-10.2); Carbon Dioxide 29 mmol/L (22-30); Chloride 102 mmol/L (98-107); Estimated CRCL calculation 113 ml/min; Estimated Glomerular Filt Rate > 60; Glucose 137 mg/dL (65-110); Potassium 4.4 mmol/L (3.4-5.0); Sodium 133 mmol/L (137-145)
[2024-08-01] MEDS: oxyCODONE/ACETAMINOPHEN (*CRX) 5-325 MG TABLET 1 TABLET PO ×2 (06:31→14:28)
[2024-08-01] MEDS: LACTATED RINGERS 1,000 ML 100 ML IV CONT ×2 (07:45→19:42)
[2024-08-01] MEDS: FAMOTIDINE 20 MG/2 ML VIAL IV PUSH ×2 (08:15→19:52)
[2024-08-01] MEDS: ENOXAPARIN 40 MG/0.4 ML SYRINGE SUB-Q (08:15)
[2024-08-01] MEDS: IBUPROFEN IV 800 MG/200 ML 800 MG/200 ML BAG 400 MG IVPB ×2 (09:37→23:56)
--- NOTE | 2024-08-01 11:04 | PM.PNGS ---
Progress Note: A&P Assessment and Plan (1) Acute appendicitis with perforation, localized peritonitis, and abscess: Code(s): K35.33 - Acute appendicitis with perforation, localized peritonitis, and gangrene, with abscess Status: Acute Assessment and Plan: doing well, cont abx, pain control, encourage OOB/IS, await path, ADAT Subjective Subjective Date/Time Seen: 08/01/24 11:04 Interval history: no acute issues, pretty sore exp c movt, michael clears Review of Systems Review of Systems: All systems reviewed & are unremarkable except as noted in HPI and below Exam Const: General: cooperative, comfortable and no acute distress Resp: Auscultation: clear to auscultation bilaterally Cardio: Rate: regular rate Rhythm: regular rhythm GI: Inspection: normal to inspection, distended and incision GI Palp: Yes abdominal tenderness and Yes Soft to palpation Objective Data Vital Signs Vital Signs: Vital Signs - 24 hr 07/31/24 12:29 07/31/24 15:00 07/31/24 15:06 Temperature 36.4 C 37.0 C Pulse Rate 91 94 93 Respiratory Rate 18 16 18 Blood Pressure 131/98 H 141/81 H 142/90 H Pulse Oximetry 98 96 99 Oxygen Delivery Room Air Oxygen Flow Rate 07/31/24 17:36 07/31/24 17:45 07/31/24 18:00 Temperature 37.7 C H Pulse Rate 88 92 88 Respiratory Rate 15 151 H 15 Blood Pressure 126/80 126/76 138/85 Pulse Oximetry 97 97 99 Oxygen Delivery Simple Face Mask Simple Face Mask Simple Face Mask Oxygen Flow Rate 5 5 5 07/31/24 18:15 07/31/24 18:30 07/31/24 18:45 Temperature Pulse Rate 96 92 90 Respiratory Rate 15 15 15 Blood Pressure 137/82 127/87 131/78 Pulse Oximetry 99 94 94 Oxygen Delivery Simple Face Mask Room Air Room Air Oxygen Flow Rate 5 07/31/24 19:00 07/31/24 19:13 07/31/24 19:41 Temperature 36.3 C L Pulse Rate 90 89 96 Respiratory Rate 15 15 18 Blood Pressure 123/72 148/90 H 156/85 H Pulse Oximetry 95 96 97 Oxygen Delivery Room Air Nasal Cannula Oxygen Flow Rate 2 07/31/24 20:00 07/31/24 20:13 07/31/24 21:13 Temperature 36.6 C 36.4 C Pulse Rate 94 90 Respiratory Rate 20 20 Blood Pressure 158/85 H 156/93 H Pulse Oximetry 98 98 98 Oxygen Delivery Oxygen Flow Rate 2 07/31/24 23:10 07/31/24 23:15 08/01/24 01:31 Temperature 36.5 C Pulse Rate 82 Respiratory Rate 20 Blood Pressure 128/79 Pulse Oximetry 99 97 100 Oxygen Delivery Nasal Cannula Room Air Oxygen Flow Rate 3 08/01/24 05:13 08/01/24 08:00 08/01/24 08:29 Temperature 36.6 C Pulse Rate 80 Respiratory Rate 20 Blood Pressure 136/87 Pulse Oximetry 98 98 98 Oxygen Delivery Room Air Room Air Oxygen Flow Rate 08/01/24 09:13 Temperature 36.8 C Pulse Rate 100 Respiratory Rate 20 Blood Pressure 131/81 Pulse Oximetry 95 Oxygen Delivery Oxygen Flow Rate Intake/Output Intake/Output: Intake & Output 07/29/24 07/30/24 07/31/24 08/01/24 23:59 23:59 23:59 23:59 Intake Total 100 1930 Output Total 40 50 Balance 60 1880 Meds/Results Medications: Active Medications Generic Name Dose Route Start Last Admin Trade Name Freq PRN Reason Stop Dose Admin Enoxaparin Sodium 40 mg 08/01/24 09:00 08/01/24 08:15 Enoxaparin 40 Mg/0.4 Ml Syringe SUB-Q 40 mg DAILY SIGRID Administration Famotidine 20 mg 07/31/24 21:00 08/01/24 08:15 Famotidine 20 Mg/2 Ml Vial IV PUSH 20 mg Q12HR SIGRID Administration Hydromorphone HCl 1 mg 07/31/24 19:28 07/31/24 23:16 Hydromorphone Hcl Inj (*Crx) 1 Mg/Ml Syr IV PUSH 1 mg Q2H PRN Administration Breakthrough Pain Rated 7-10 or NPO Hydromorphone HCl 0.5 mg 07/31/24 19:28 08/01/24 02:11 Hydromorphone Hcl Inj (*Crx) 1 Mg/Ml Syr IV PUSH 0.5 mg Q2H PRN Administration Breakthrough Pain Rated 4-6 or NPO Lactated Ringer's 1,000 mls @ 100 mls/hr 07/31/24 19:28 08/01/24 07:45 Lr - Lactated Ringers Iv IV CONT 100 mls/hr .Q10H SIGRID Administration Ibuprofen 800 mg in 200 mls @ 400 mls/hr 07/31/24 19:28 08/01/24 09:37 Caldolor 800 Mg/200 Ml IVPB 400 mls/hr Q6H PRN Administration Breakthrough Pain Rated 1-3 or NPO Piperacillin/Tazobactam/Dextrose 3.375 gm in 50 mls @ 100 mls/hr 07/31/24 20:00 08/01/24 07:46 Zosyn 3.375 Gm/Ns 50 Ml IVPB 100 mls/hr Q6H SIGRID Administration Naloxone HCl 0.1 mg 07/31/24 19:28 Naloxone Hcl 0.4 Mg/Ml Vial IV PUSH Q2M PRN Opiate Reversal Ondansetron HCl 4 mg 07/31/24 19:28 Ondansetron Inj 4 Mg/2 Ml Vial IV PUSH Q4H PRN Nausea And Vomiting Oxycodone/Acetaminophen 1 tablet 07/31/24 19:28 08/01/24 06:31 Oxycodone/Acetaminophen (*Crx) 5-325 Mg Tablet PO 1 tablet Q4H PRN Administration Pain Rated 4-6 Radiology Results: ITS Impressions Abdomen/Pelvis CT 07/31/24 08:31 IMPRESSION: 1. Highly suggestive of appendicitis with appendicolith or abscess in the right lower quadrant area clinical correlation and follow-up advised. 2. Fat infiltration of the liver. Physician: Mani Moon III, DO Was notified with the result of the patient at 8:46 AM on July 31, 2024. Labs Labs: Laboratory Results - last 24 hr 07/31/24 08/01/24 17:48 05:27 WBC 15.0 H RBC 4.45 L Hgb 13.5 L Hct 40.8 L MCV 91.7 MCH 30.3 MCHC 33.1 RDW 12.2 Plt Count 331 MPV 9.0 Sodium 133 L Potassium 4.4 Chloride 102 Carbon Dioxide 29 Anion Gap 2 L BUN 9 Creatinine 1.00 Estim Creat Clear Calc 113 Estimated GFR > 60 Glucose 137 H Calcium 8.9 Hep Bs Antigen Negative Hepatitis C Ab Screen Negative HIV 1&2 Ab/P24 Ag 4thGn Negative
[2024-08-01] MEDS: HYDROmorphone HCL INJ (*CRX) 1 MG/ML SYR IV PUSH (19:51)
[2024-08-01] MEDS: ONDANSETRON INJ 4 MG/2 ML VIAL IV PUSH (23:55)
[2024-08-02] MEDS: PIPERACILLN/TAZ 3.375GM/NS50ML 3.375 GM/50 ML BAG IVPB ×4 (01:46→20:12)
[2024-08-02 06:05] VITALS: BP 131/79; PULSE 76; RESP 18; TEMP 36.5; O2SAT 96
[2024-08-02] MEDS: LACTATED RINGERS 1,000 ML 100 ML IV CONT ×2 (07:29→22:05)
[2024-08-02] MEDS: FAMOTIDINE 20 MG/2 ML VIAL IV PUSH ×2 (07:31→20:13)
[2024-08-02 08:00] VITALS: O2SAT 93
[2024-08-02] MEDS: ENOXAPARIN 40 MG/0.4 ML SYRINGE SUB-Q (08:34)
--- NOTE | 2024-08-02 10:07 | P.PNGS_ITS ---
Progress Note: A&P Assessment and Plan (1) Acute appendicitis with perforation, localized peritonitis, and abscess: Code(s): K35.33 - Acute appendicitis with perforation, localized peritonitis, and gangrene, with abscess Status: Acute Assessment and Plan: * Postop day 2 and appears to be developing an ileus. Will order KUB. * Will make NPO and continue IV fluids. Continue antiemetics as needed. May need NG tube placed if he has more vomiting. * Recheck labs today * Continue IV antibiotics Plan I have discussed the patient's case and plan of care with Dr. Franz. Subjective Subjective Date/Time Seen: 08/02/24 10:07 Post Op day: 2 (diagnostic laparoscopy converted to hand assisted laparoscopic ileocecectomy with mobilization of the hepatic flexure) Patient reports: voiding w/o difficulty, flatus, no bowel movement, nausea and vomiting Interval history: Patient having a lot of bloating and nausea. He vomited 3-4 times overnight. He is not tolerating liquids. Postoperative pain seems controlled. He does report a little flatus this morning, no BM since surgery. No other complaints at this time. Exam Const: General: comfortable and no acute distress GI: Inspection: distended, incision (incision dry and intact) and other (KENNEDY drain with serosanguineous) GI Palp: Yes Soft to palpation, Yes Tenderness to palpation present (GI) (incisional and mild diffuse tenderness), No Guarding due to palpation present (GI) and No Rebound tenderness present Auscultation: Hypoactive bowel sounds present (very hypoactive) Neuro: General: moves all extremities and no focal motor deficits Extrem: General: no calf tenderness and no edema Psych: Mental Status: mental status grossly normal Insight: Good insight present (Psych) Objective Data Vital Signs Vital Signs: Vital Signs - 24 hr 08/01/24 13:13 08/01/24 17:13 08/01/24 20:00 Temperature 98.6 F 98.4 F Pulse Rate 89 90 Respiratory Rate 20 20 Blood Pressure 125/79 130/78 Pulse Oximetry 96 95 Oxygen Delivery Room Air 08/01/24 21:13 08/02/24 06:05 08/02/24 08:00 Temperature 98.7 F 97.7 F Pulse Rate 90 76 Respiratory Rate 16 18 Blood Pressure 153/80 H 131/79 Pulse Oximetry 93 96 93 Oxygen Delivery Room Air Intake/Output Intake/Output: Intake & Output 07/30/24 07/31/24 08/01/24 08/02/24 23:59 23:59 23:59 23:59 Intake Total 100 5000 1850 Output Total 40 120 Balance 60 4880 1850 Meds/Results Medications: Active Medications Generic Name Dose Route Start Last Admin Trade Name Freq PRN Reason Stop Dose Admin Enoxaparin Sodium 40 mg 08/01/24 09:00 08/02/24 08:34 Enoxaparin 40 Mg/0.4 Ml Syringe SUB-Q 40 mg DAILY SIGRID Administration Famotidine 20 mg 07/31/24 21:00 08/02/24 07:31 Famotidine 20 Mg/2 Ml Vial IV PUSH 20 mg Q12HR SIGRID Administration Hydromorphone HCl 1 mg 07/31/24 19:28 08/01/24 19:51 Hydromorphone Hcl Inj (*Crx) 1 Mg/Ml Syr IV PUSH 1 mg Q2H PRN Administration Breakthrough Pain Rated 7-10 or NPO Hydromorphone HCl 0.5 mg 07/31/24 19:28 08/01/24 02:11 Hydromorphone Hcl Inj (*Crx) 1 Mg/Ml Syr IV PUSH 0.5 mg Q2H PRN Administration Breakthrough Pain Rated 4-6 or NPO Ibuprofen 800 mg in 200 mls @ 400 mls/hr 07/31/24 19:28 08/02/24 00:26 Caldolor 800 Mg/200 Ml IVPB Infused Q6H PRN Infusion Breakthrough Pain Rated 1-3 or NPO Piperacillin/Tazobactam/Dextrose 3.375 gm in 50 mls @ 100 mls/hr 07/31/24 20:00 08/02/24 07:30 Zosyn 3.375 Gm/Ns 50 Ml IVPB 100 mls/hr Q6H SIGRID Administration Naloxone HCl 0.1 mg 07/31/24 19:28 Naloxone Hcl 0.4 Mg/Ml Vial IV PUSH Q2M PRN Opiate Reversal Ondansetron HCl 4 mg 07/31/24 19:28 08/01/24 23:55 Ondansetron Inj 4 Mg/2 Ml Vial IV PUSH 4 mg Q4H PRN Administration Nausea And Vomiting Oxycodone/Acetaminophen 1 tablet 07/31/24 19:28 08/01/24 14:28 Oxycodone/Acetaminophen (*Crx) 5-325 Mg Tablet PO 1 tablet Q4H PRN Administration Pain Rated 4-6 Radiology Results: ITS Impressions Abdomen/Pelvis CT 07/31/24 08:31 IMPRESSION: 1. Highly suggestive of appendicitis with appendicolith or abscess in the right lower quadrant area clinical correlation and follow-up advised. 2. Fat infiltration of the liver. Physician: Mani Moon III, DO Was notified with the result of the patient at 8:46 AM on July 31, 2024.
[2024-08-02] MEDS: ONDANSETRON INJ 4 MG/2 ML VIAL IV PUSH ×2 (10:11→16:48)
[2024-08-02] MEDS: IBUPROFEN IV 800 MG/200 ML 800 MG/200 ML BAG 400 MG IVPB ×2 (10:11→18:09)
[2024-08-02 10:41] LABS: Hematocrit 38.6 % (42.0-52.0); Hemoglobin 12.4 g/dL (14.0-18.0); Mean Corpuscular HGB Conc 32.1 g/dl (32-36); Mean Corpuscular Volume 93.2 fl (80-100); Mean Platelet Volume 8.8 fl (7.4-10.4); Platelet Count Result 289 k/mm3 (150-375); Red Blood Count 4.14 M/mm3 (4.6-6.20); Red Cell Distribution Width 12.2 % (11.5-14.5); White Blood Count 9.4 K/mm3 (4.5-10.0)
[2024-08-02 10:52] LABS: Anion Gap 3 mmol/L (4-12); Blood Urea Nitrogen 8 mg/dL (9-20); Calcium 8.6 mg/dL (8.4-10.2); Carbon Dioxide 28 mmol/L (22-30); Chloride 105 mmol/L (98-107); Estimated CRCL calculation 125 ml/min; Estimated Glomerular Filt Rate > 60; Glucose 111 mg/dL (65-110); Magnesium 2.2 mg/dL (1.6-2.3); Phosphorus 3.6 mg/dL (2.5-4.5); Potassium 3.8 mmol/L (3.4-5.0); Sodium 136 mmol/L (137-145)
--- NOTE | 2024-08-02 11:27 | PM.PNGS ---
Progress Note: A&P Assessment and Plan (1) Acute appendicitis with perforation, localized peritonitis, and abscess: Code(s): K35.33 - Acute appendicitis with perforation, localized peritonitis, and gangrene, with abscess Status: Acute Assessment and Plan: likely c ileus, cont OOB/IS, cont abx, cont diet for now Subjective Subjective Date/Time Seen: 08/02/24 11:27 Interval history: feels a little better, some nausea, no bowel fxn Review of Systems Review of Systems: All systems reviewed & are unremarkable except as noted in HPI and below Exam Const: General: cooperative, comfortable and no acute distress Resp: Auscultation: clear to auscultation bilaterally Cardio: Rate: regular rate Rhythm: regular rhythm GI: Inspection: normal to inspection, distended and incision GI Palp: Yes abdominal tenderness, Yes Soft to palpation, Yes Tenderness to palpation present (GI), No Guarding due to palpation present (GI) and No Rigid due to palpation Objective Data Vital Signs Vital Signs: Vital Signs - 24 hr 08/01/24 13:13 08/01/24 17:13 08/01/24 20:00 Temperature 37.0 C 36.9 C Pulse Rate 89 90 Respiratory Rate 20 20 Blood Pressure 125/79 130/78 Pulse Oximetry 96 95 Oxygen Delivery Room Air 08/01/24 21:13 08/02/24 06:05 08/02/24 08:00 Temperature 37.1 C 36.5 C Pulse Rate 90 76 Respiratory Rate 16 18 Blood Pressure 153/80 H 131/79 Pulse Oximetry 93 96 93 Oxygen Delivery Room Air Intake/Output Intake/Output: Intake & Output 07/30/24 07/31/24 08/01/24 08/02/24 23:59 23:59 23:59 23:59 Intake Total 100 5000 1850 Output Total 40 120 Balance 60 4880 1850 Meds/Results Medications: Active Medications Generic Name Dose Route Start Last Admin Trade Name Freq PRN Reason Stop Dose Admin Enoxaparin Sodium 40 mg 08/01/24 09:00 08/02/24 08:34 Enoxaparin 40 Mg/0.4 Ml Syringe SUB-Q 40 mg DAILY SIGRID Administration Famotidine 20 mg 07/31/24 21:00 08/02/24 07:31 Famotidine 20 Mg/2 Ml Vial IV PUSH 20 mg Q12HR SIGRID Administration Hydromorphone HCl 1 mg 07/31/24 19:28 08/01/24 19:51 Hydromorphone Hcl Inj (*Crx) 1 Mg/Ml Syr IV PUSH 1 mg Q2H PRN Administration Breakthrough Pain Rated 7-10 or NPO Hydromorphone HCl 0.5 mg 07/31/24 19:28 08/01/24 02:11 Hydromorphone Hcl Inj (*Crx) 1 Mg/Ml Syr IV PUSH 0.5 mg Q2H PRN Administration Breakthrough Pain Rated 4-6 or NPO Ibuprofen 800 mg in 200 mls @ 400 mls/hr 07/31/24 19:28 08/02/24 10:11 Caldolor 800 Mg/200 Ml IVPB 400 mls/hr Q6H PRN Administration Breakthrough Pain Rated 1-3 or NPO Piperacillin/Tazobactam/Dextrose 3.375 gm in 50 mls @ 100 mls/hr 07/31/24 20:00 08/02/24 07:30 Zosyn 3.375 Gm/Ns 50 Ml IVPB 100 mls/hr Q6H SIGRID Administration Lactated Ringer's 1,000 mls @ 100 mls/hr 08/02/24 10:10 Lr - Lactated Ringers Iv IV CONT .Q10H SIGRID Naloxone HCl 0.1 mg 07/31/24 19:28 Naloxone Hcl 0.4 Mg/Ml Vial IV PUSH Q2M PRN Opiate Reversal Ondansetron HCl 4 mg 07/31/24 19:28 08/02/24 10:11 Ondansetron Inj 4 Mg/2 Ml Vial IV PUSH 4 mg Q4H PRN Administration Nausea And Vomiting Oxycodone/Acetaminophen 1 tablet 07/31/24 19:28 08/01/24 14:28 Oxycodone/Acetaminophen (*Crx) 5-325 Mg Tablet PO 1 tablet Q4H PRN Administration Pain Rated 4-6 Radiology Results: ITS Impressions Abdomen/Pelvis CT 07/31/24 08:31 IMPRESSION: 1. Highly suggestive of appendicitis with appendicolith or abscess in the right lower quadrant area clinical correlation and follow-up advised. 2. Fat infiltration of the liver. Physician: Mani Moon III, DO Was notified with the result of the patient at 8:46 AM on July 31, 2024. Labs Labs: Laboratory Results - last 24 hr 08/02/24 08/02/24 08/02/24 10:29 10:29 10:29 WBC 9.4 RBC 4.14 L Hgb 12.4 L Hct 38.6 L MCV 93.2 MCH 30.0 MCHC 32.1 RDW 12.2 Plt Count 289 MPV 8.8 Sodium Cancelled 136 L Potassium Cancelled 3.8 Chloride Cancelled Carbon Dioxide Anion Gap BUN Creatinine Estim Creat Clear Calc Estimated GFR Glucose Calcium Phosphorus Magnesium 08/02/24 08/02/24 08/02/24 10:29 10:29 10:29 WBC RBC Hgb Hct MCV MCH MCHC RDW Plt Count MPV Sodium Potassium Chloride 105 Carbon Dioxide Cancelled 28 Anion Gap Cancelled 3 L BUN Cancelled Creatinine Estim Creat Clear Calc Estimated GFR Glucose Calcium Phosphorus Magnesium 08/02/24 08/02/24 08/02/24 10:29 10:29 10:29 WBC RBC Hgb Hct MCV MCH MCHC RDW Plt Count MPV Sodium Potassium Chloride Carbon Dioxide Anion Gap BUN 8 L Creatinine Cancelled 0.90 Estim Creat Clear Calc Cancelled 125 Estimated GFR Cancelled Glucose Calcium Phosphorus Magnesium 08/02/24 08/02/24 08/02/24 10:29 10:29 10:29 WBC RBC Hgb Hct MCV MCH MCHC RDW Plt Count MPV Sodium Potassium Chloride Carbon Dioxide Anion Gap BUN Creatinine Estim Creat Clear Calc Estimated GFR > 60 Glucose Cancelled 111 H Calcium Cancelled 8.6 Phosphorus 3.6 Magnesium 2.2
[2024-08-02 14:00] VITALS: BP 140/79; PULSE 83; RESP 14; TEMP 37.1; O2SAT 96
--- NOTE | 2024-08-02 16:00 | PC.NURSE ---
1500 Message left for Arin Flores LITHOGRAPHIC CAMERA OPERATOR to return call regarding kub.
--- NOTE | 2024-08-02 16:00 | PC.NURSE ---
[address] again [address] Franz or Arin Flores Chemical Engineer to return call regarding KUB results.
[2024-08-02 22:16] VITALS: BP 120/82; PULSE 80; RESP 18; TEMP 36.3; O2SAT 96
[2024-08-03] MEDS: PIPERACILLN/TAZ 3.375GM/NS50ML 3.375 GM/50 ML BAG IVPB ×4 (01:08→20:17)
[2024-08-03] MEDS: ONDANSETRON INJ 4 MG/2 ML VIAL IV PUSH ×2 (01:57→18:30)
[2024-08-03] MEDS: IBUPROFEN IV 800 MG/200 ML 800 MG/200 ML BAG 400 MG IVPB ×2 (01:57→18:30)
[2024-08-03 06:00] VITALS: BP 138/88; PULSE 74; RESP 16; TEMP 36.3; O2SAT 95
[2024-08-03 07:20] LABS: Hematocrit 41.5 % (42.0-52.0); Hemoglobin 13.3 g/dL (14.0-18.0); Mean Corpuscular Volume 93.5 fl (80-100); Mean Platelet Volume 8.9 fl (7.4-10.4); Platelet Count Result 349 k/mm3 (150-375); Red Blood Count 4.44 M/mm3 (4.6-6.20); Red Cell Distribution Width 11.8 % (11.5-14.5); White Blood Count 10.9 K/mm3 (4.5-10.0)
[2024-08-03 07:29] LABS: Anion Gap 5 mmol/L (4-12); Blood Urea Nitrogen 9 mg/dL (9-20); Calcium 9.1 mg/dL (8.4-10.2); Carbon Dioxide 29 mmol/L (22-30); Chloride 105 mmol/L (98-107); Estimated CRCL calculation 113 ml/min; Estimated Glomerular Filt Rate > 60; Glucose 101 mg/dL (65-110); Sodium 139 mmol/L (137-145)
[2024-08-03] MEDS: ENOXAPARIN 40 MG/0.4 ML SYRINGE SUB-Q (08:25)
[2024-08-03] MEDS: FAMOTIDINE 20 MG/2 ML VIAL IV PUSH ×2 (08:26→20:17)
--- NOTE | 2024-08-03 09:55 | P.PNGS_ITS ---
Progress Note: A&P Assessment and Plan (1) Acute appendicitis with perforation, localized peritonitis, and abscess: Code(s): K35.33 - Acute appendicitis with perforation, localized peritonitis, and gangrene, with abscess Status: Acute Assessment and Plan: * Ileus resolving, will start advancing his diet as tolerated. Continue IV abx. Encouraged ambulating in the halls. Pathology showed perforated appendicitis, which was discussed in detail with the patient. Plan I have discussed the patient's case and plan of care with Dr. Franz. Subjective Subjective Date/Time Seen: 08/03/24 09:55 Post Op day: 3 (diagnostic laparoscopy converted to hand assisted laparoscopic ileocecectomy with mobilization of the hepatic flexure) Patient reports: no new complaints, feels better, voiding w/o difficulty, flatus, no bowel movement and afebrile Interval history: Patient feeling better today. Less bloated. No vomiting since yesterday morning. Nausea is much better. He has been passing more flatus, no BM yet. Although he feels like he could have a BM this morning. Exam Const: General: comfortable and no acute distress GI: Inspection: incision (incisions dry and intact) and other (less distended) GI Palp: Yes Soft to palpation, Yes Tenderness to palpation present (GI) (incisional, minimal) and No Guarding due to palpation present (GI) Auscultation: Hypoactive bowel sounds present (more BS today) Other: KENNEDY drain with more serous drainage Neuro: General: moves all extremities and no focal motor deficits Extrem: General: no calf tenderness and no edema Psych: Mental Status: mental status grossly normal Insight: Good insight present (Psych) Objective Data Vital Signs Vital Signs: Vital Signs - 24 hr 08/02/24 14:00 08/02/24 20:00 08/02/24 22:16 Temperature 98.8 F 97.3 F L Pulse Rate 83 80 Respiratory Rate 14 18 Blood Pressure 140/79 120/82 Pulse Oximetry 96 96 Oxygen Delivery Room Air 08/03/24 06:00 Temperature 97.3 F L Pulse Rate 74 Respiratory Rate 16 Blood Pressure 138/88 Pulse Oximetry 95 Oxygen Delivery Intake/Output Intake/Output: Intake & Output 07/31/24 08/01/24 08/02/24 08/03/24 23:59 23:59 23:59 23:59 Intake Total 100 5000 2400 595.0 Output Total 40 120 150 170 Balance 60 4880 2250 425.0 Meds/Results Medications: Active Medications Generic Name Dose Route Start Last Admin Trade Name Freq PRN Reason Stop Dose Admin Enoxaparin Sodium 40 mg 08/01/24 09:00 08/03/24 08:25 Enoxaparin 40 Mg/0.4 Ml Syringe SUB-Q 40 mg DAILY SIGRID Administration Famotidine 20 mg 07/31/24 21:00 08/03/24 08:26 Famotidine 20 Mg/2 Ml Vial IV PUSH 20 mg Q12HR SIGRID Administration Hydromorphone HCl 1 mg 07/31/24 19:28 08/01/24 19:51 Hydromorphone Hcl Inj (*Crx) 1 Mg/Ml Syr IV PUSH 1 mg Q2H PRN Administration Breakthrough Pain Rated 7-10 or NPO Hydromorphone HCl 0.5 mg 07/31/24 19:28 08/01/24 02:11 Hydromorphone Hcl Inj (*Crx) 1 Mg/Ml Syr IV PUSH 0.5 mg Q2H PRN Administration Breakthrough Pain Rated 4-6 or NPO Ibuprofen 800 mg in 200 mls @ 400 mls/hr 07/31/24 19:28 08/03/24 02:27 Caldolor 800 Mg/200 Ml IVPB Infused Q6H PRN Infusion Breakthrough Pain Rated 1-3 or NPO Piperacillin/Tazobactam/Dextrose 3.375 gm in 50 mls @ 100 mls/hr 07/31/24 20:00 08/03/24 08:14 Zosyn 3.375 Gm/Ns 50 Ml IVPB 100 mls/hr Q6H SIGRID Administration Lactated Ringer's 1,000 mls @ 100 mls/hr 08/02/24 10:10 08/03/24 02:27 Lr - Lactated Ringers Iv IV CONT 100 mls/hr .Q10H SIGRID Infusion Naloxone HCl 0.1 mg 07/31/24 19:28 Naloxone Hcl 0.4 Mg/Ml Vial IV PUSH Q2M PRN Opiate Reversal Ondansetron HCl 4 mg 07/31/24 19:28 08/03/24 01:57 Ondansetron Inj 4 Mg/2 Ml Vial IV PUSH 4 mg Q4H PRN Administration Nausea And Vomiting Oxycodone/Acetaminophen 1 tablet 07/31/24 19:28 08/01/24 14:28 Oxycodone/Acetaminophen (*Crx) 5-325 Mg Tablet PO 1 tablet Q4H PRN Administration Pain Rated 4-6 Radiology Results: ITS Impressions Abdomen/Pelvis CT 07/31/24 08:31 IMPRESSION: 1. Highly suggestive of appendicitis with appendicolith or abscess in the right lower quadrant area clinical correlation and follow-up advised. 2. Fat infiltration of the liver. Physician: Mani Moon III, DO Was notified with the result of the patient at 8:46 AM on July 31, 2024. Abdomen X-Ray 08/03/24 06:04 Impression: Multiple dilated small bowel loops. Correlate for small bowel obstruction versus ileus. Labs Labs: Laboratory Results - last 24 hr 08/02/24 08/02/24 08/02/24 10:29 10:29 10:29 WBC 9.4 RBC 4.14 L Hgb 12.4 L Hct 38.6 L MCV 93.2 MCH 30.0 MCHC 32.1 RDW 12.2 Plt Count 289 MPV 8.8 Sodium Cancelled 136 L Potassium Cancelled 3.8 Chloride Cancelled Carbon Dioxide Anion Gap BUN Creatinine Estim Creat Clear Calc Estimated GFR Glucose Calcium Phosphorus Magnesium 08/02/24 08/02/24 08/02/24 10:29 10:29 10:29 WBC RBC Hgb Hct MCV MCH MCHC RDW Plt Count MPV Sodium Potassium Chloride 105 Carbon Dioxide Cancelled 28 Anion Gap Cancelled 3 L BUN Cancelled Creatinine Estim Creat Clear Calc Estimated GFR Glucose Calcium Phosphorus Magnesium 08/02/24 08/02/24 08/02/24 10:29 10:29 10:29 WBC RBC Hgb Hct MCV MCH MCHC RDW Plt Count MPV Sodium Potassium Chloride Carbon Dioxide Anion Gap BUN 8 L Creatinine Cancelled 0.90 Estim Creat Clear Calc Cancelled 125 Estimated GFR Cancelled Glucose Calcium Phosphorus Magnesium 08/02/24 08/02/24 08/02/24 10:29 10:29 10:29 WBC RBC Hgb Hct MCV MCH MCHC RDW Plt Count MPV Sodium Potassium Chloride Carbon Dioxide Anion Gap BUN Creatinine Estim Creat Clear Calc Estimated GFR > 60 Glucose Cancelled 111 H Calcium Cancelled 8.6 Phosphorus 3.6 Magnesium 2.2 08/03/24 06:41 WBC 10.9 H RBC 4.44 L Hgb 13.3 L Hct 41.5 L MCV 93.5 MCH 30.0 MCHC 32.0 RDW 11.8 Plt Count 349 MPV 8.9 Sodium 139 Potassium 4.0 Chloride 105 Carbon Dioxide 29 Anion Gap 5 BUN 9 Creatinine 1.00 Estim Creat Clear Calc 113 Estimated GFR > 60 Glucose 101 Calcium 9.1 Phosphorus Magnesium
[2024-08-03 14:00] VITALS: BP 140/85; PULSE 94; RESP 14; TEMP 37.6; O2SAT 97
[2024-08-03 21:16] VITALS: BP 135/80; PULSE 85; RESP 14; TEMP 36.7; O2SAT 96
[2024-08-04] MEDS: PIPERACILLN/TAZ 3.375GM/NS50ML 3.375 GM/50 ML BAG IVPB ×2 (01:12→09:19)
[2024-08-04 05:17] VITALS: BP 159/90; PULSE 72; RESP 14; TEMP 36.3; O2SAT 98
[2024-08-04] MEDS: ENOXAPARIN 40 MG/0.4 ML SYRINGE SUB-Q (09:19)
[2024-08-04] MEDS: FAMOTIDINE 20 MG/2 ML VIAL IV PUSH (09:20)
--- NOTE | 2024-08-04 10:36 | PM.PNGS ---
Progress Note: A&P Assessment and Plan (1) Acute appendicitis with perforation, localized peritonitis, and abscess: Code(s): K35.33 - Acute appendicitis with perforation, localized peritonitis, and gangrene, with abscess Status: Acute Assessment and Plan: clinically improved, will recheck labs and CT today given increased drainage, if ok will likely dc home c abx, analgesia Subjective Subjective Date/Time Seen: 08/04/24 10:36 Interval history: feels pretty good, had small BM this am, micahel diet Review of Systems Review of Systems: All systems reviewed & are unremarkable except as noted in HPI and below Exam Const: General: cooperative, comfortable and no acute distress Resp: Auscultation: clear to auscultation bilaterally Cardio: Rate: regular rate Rhythm: regular rhythm GI: Inspection: normal to inspection, non-distended and incision GI Palp: Yes abdominal tenderness, Yes Soft to palpation, Yes Tenderness to palpation present (GI), No Guarding due to palpation present (GI) and No Rigid due to palpation Other: incision C/D/I, mild incisional soreness, KENNEDY c mod serous drainage Objective Data Vital Signs Vital Signs: Vital Signs - 24 hr 08/03/24 14:00 08/03/24 20:00 08/03/24 21:16 Temperature 37.6 C 36.7 C Pulse Rate 94 85 Respiratory Rate 14 14 Blood Pressure 140/85 135/80 Pulse Oximetry 97 96 Oxygen Delivery Room Air 08/04/24 05:17 Temperature 36.3 C L Pulse Rate 72 Respiratory Rate 14 Blood Pressure 159/90 H Pulse Oximetry 98 Oxygen Delivery Intake/Output Intake/Output: Intake & Output 08/01/24 08/02/24 08/03/24 08/04/24 23:59 23:59 23:59 23:59 Intake Total 5000 2400 1880.0 550 Output Total 120 150 390 160 Balance 4880 2250 1490.0 390 Meds/Results Medications: Active Medications Generic Name Dose Route Start Last Admin Trade Name Freq PRN Reason Stop Dose Admin Enoxaparin Sodium 40 mg 08/01/24 09:00 08/04/24 09:19 Enoxaparin 40 Mg/0.4 Ml Syringe SUB-Q 40 mg DAILY SIGRID Administration Famotidine 20 mg 07/31/24 21:00 08/04/24 09:20 Famotidine 20 Mg/2 Ml Vial IV PUSH 20 mg Q12HR SIGRID Administration Hydromorphone HCl 1 mg 07/31/24 19:28 08/01/24 19:51 Hydromorphone Hcl Inj (*Crx) 1 Mg/Ml Syr IV PUSH 1 mg Q2H PRN Administration Breakthrough Pain Rated 7-10 or NPO Hydromorphone HCl 0.5 mg 07/31/24 19:28 08/01/24 02:11 Hydromorphone Hcl Inj (*Crx) 1 Mg/Ml Syr IV PUSH 0.5 mg Q2H PRN Administration Breakthrough Pain Rated 4-6 or NPO Ibuprofen 800 mg in 200 mls @ 400 mls/hr 07/31/24 19:28 08/03/24 18:30 Caldolor 800 Mg/200 Ml IVPB 400 mls/hr Q6H PRN Administration Breakthrough Pain Rated 1-3 or NPO Piperacillin/Tazobactam/Dextrose 3.375 gm in 50 mls @ 100 mls/hr 07/31/24 20:00 08/04/24 09:19 Zosyn 3.375 Gm/Ns 50 Ml IVPB 100 mls/hr Q6H SIGRID Administration Naloxone HCl 0.1 mg 07/31/24 19:28 Naloxone Hcl 0.4 Mg/Ml Vial IV PUSH Q2M PRN Opiate Reversal Ondansetron HCl 4 mg 07/31/24 19:28 08/03/24 18:30 Ondansetron Inj 4 Mg/2 Ml Vial IV PUSH 4 mg Q4H PRN Administration Nausea And Vomiting Oxycodone/Acetaminophen 1 tablet 07/31/24 19:28 08/01/24 14:28 Oxycodone/Acetaminophen (*Crx) 5-325 Mg Tablet PO 1 tablet Q4H PRN Administration Pain Rated 4-6 Radiology Results: ITS Impressions Abdomen/Pelvis CT 07/31/24 08:31 IMPRESSION: 1. Highly suggestive of appendicitis with appendicolith or abscess in the right lower quadrant area clinical correlation and follow-up advised. 2. Fat infiltration of the liver. Physician: Mani Moon III, DO Was notified with the result of the patient at 8:46 AM on July 31, 2024. Abdomen X-Ray 08/03/24 06:04 Impression: Multiple dilated small bowel loops. Correlate for small bowel obstruction versus ileus.
[2024-08-04 11:03] LABS: Hematocrit 38.6 % (42.0-52.0); Hemoglobin 12.6 g/dL (14.0-18.0); Mean Corpuscular HGB Conc 32.6 g/dl (32-36); Mean Corpuscular Hemoglobin 29.9 pg (26-34); Mean Corpuscular Volume 91.5 fl (80-100); Mean Platelet Volume 8.7 fl (7.4-10.4); Platelet Count Result 337 k/mm3 (150-375); Red Blood Count 4.22 M/mm3 (4.6-6.20); Red Cell Distribution Width 11.6 % (11.5-14.5); White Blood Count 9.9 K/mm3 (4.5-10.0)
[2024-08-04 11:08] LABS: Anion Gap 5 mmol/L (4-12); Blood Urea Nitrogen 10 mg/dL (9-20); Calcium 8.8 mg/dL (8.4-10.2); Carbon Dioxide 29 mmol/L (22-30); Chloride 101 mmol/L (98-107); Estimated CRCL calculation 139 ml/min; Estimated Glomerular Filt Rate > 60; Glucose 131 mg/dL (65-110); Potassium 3.6 mmol/L (3.4-5.0); Sodium 135 mmol/L (137-145)
[2024-08-04 14:00] VITALS: BP 137/84; PULSE 88; RESP 14; TEMP 36.9; O2SAT 98
--- OUTSIDE RECORDS SUMMARY | 2024-08-05 20:21 | XMS_ITS | Referral Summary ---
Author Organization [facility] Address [address] [place] [address] Care Team Providers Care Mold Unloader Name Role Phone Quinton Burnett MD Primary Care Provider [phone] Source Comments [facility],non-owned Affiliates and Associated Physician Practices is amultiple site organization consisting of ambulatory clinics and hospital sitesin [place], [place], [place] and [place]. This disclosure is being madepursuant to the Care Everywhere program and may not contain all information available regarding this patient. Last updated 18.[facility] Allergies No known active allergies Medications * Be aware that medications may not be up to date on this document. Alwaysverify current medications with the patient. Medication Sig Dispensed Refills Start Date End Date Status Fexofenadine-Pseudoephedrine (JOSE LUIS-D 12 HOUR PO) Ac tive Social History Tobacco Use Types Packs/Day Years Used Date Smoking Tobacco: Never Sex and Gender Information Value Date Recorded Sex Assigned at Not on file Gender Identity Not on file Sexual Orientation Not on file Last Filed Vital Signs Vital Sign Reading Time Taken Comments Blood Pressure 122/78 12/22/2016 11:46 AM CDT Pulse 63 12/22/2016 11:46 AM CDT Temperature 36.9 ??C (98.4 ??F) 12/22/2016 11:46 AM C DT Respiratory Rate 16 12/22/2016 11:46 AM CDT Oxygen Saturation 98% 12/22/2016 11:46 AM CDT Inhaled Oxygen Concentration - - Weight 86.2 kg (190 lb) 12/22/2016 11:46 AM CDT Height 185.4 cm (6' 1 ) 12/22/2016 11:46 AM CDT Body Mass Index 25.07 12/22/2016 11:46 AM CDT Plan of Treatment Not on file Care Teams Mold Unloader Relationship Specialty Start Date End Date Quinton Burnett MD PCP - General Family Medicine 12/22/16
--- OUTSIDE RECORDS SUMMARY | 2024-08-05 20:21 | XMS_ITS | Encounter Summary ---
Author Organization [facility] Address [address] [place] [address] Care Team Providers Care Service Provider Name Role Phone Quinton Burnett MD Primary Care Provider [phone] Reason for Visit * Reason Onset Date Comments Follow-up 12/23/2016 Encounter Details Date Type Department Care Team (Late st Contact Info) Description 12/23/2016 Telephone [facility] [address] [id number] Shila Dietrich Follow-up Social History Tobacco Use Types Packs/Day Years Used Date Smoking Tobacco: Never Sex and Gender Information Value Date Recorded Sex Assigned at Not on file Gender Identity Not on file Sexual Orientation Not on file documented as of this encounter Plan of Treatment Not on file documented as of this encounter Visit Diagnoses Not on filedocumented in this encounter Care Teams Service Provider Relationship Specialty Start Date End Date Quinton Burnett MD PCP - General Family Medicine 12/22/16 documented as of this encounter
--- OUTSIDE RECORDS SUMMARY | 2024-08-05 20:21 | XMS_ITS | Patient Health Summary ---
Author Organization [facility] Address [address] [place] [address] Care Team Providers Care Ecd Name Role Phone Quinton Burnett MD Primary Care Provider [phone] Note from [facility],non-owned Affiliates and Associated Physician Practices is amultiple site organization consisting of ambulatory clinics and hospital sitesin [place], [place] and [place]. This disclosure is being madepursuant to the Care Everywhere program and may not contain all information available regarding this patient. Last updated 18.[facility] Allergies No known active allergies Medications * Be aware that medications may not be up to date on this document. Alwaysverify current medications with the patient. * Fexofenadine-Pseudoephedrine (JOSE LUIS-D 12 HOUR PO) Social History Tobacco Use Types Packs/Day Years [...] Mass Index 25.07 12/22/2016 11:46 AM CDT Care Teams Ecd Relationship Specialty Start Date End Date Quinton Burnett MD PCP - General Family Medicine 12/22/16
--- OUTSIDE RECORDS SUMMARY | 2024-08-05 20:21 | XMS_ITS | Clinical Summary ---
Author Organization [facility] [employer] Address [address] [place] [address] Care Team Providers Care Quarrying Specialist Name Role Phone Quinton Burnett MD Primary Care Provider [phone] Source Comments [facility] [employer]non-owned Affiliates and Associated Physician Practices is amultiple site organization consisting of ambulatory clinics and hospital sitesin [place], [place], [place] and [place]. This disclosure is being madepursuant to the Care Everywhere program and may not contain all information available regarding this patient. Last updated 18.[facility] [employer] Allergies No known active allergies Medications * Be aware that medications may not be up to date on this document. Alwaysverify current medications with the patient. Medication Sig Dispensed Refills Start Date End Date Status Fexofenadine-Pseudoephedrine (JOSE LUIS-D 12 HOUR PO) Ac tive Family History Medical History Relation Name Comments Negative Family History Father Negative Family History Mother Relation Name Status Comments Father Mother Social History Tobacco Use Types Packs/Day Years [...] 12/22/2016 11:46 AM CDT Plan of Treatment Health Maintenance Due Date Last Done Comments LIPID TESTING 1982 HIV SCREENING 1997 HEPATITIS C SCREENING 11/30/2000 DTAP/TDAP/TD VACCINES (1 - Tdap) 2001 HEPATITIS B VACCINE (1 of 3 - 19+ 3-dose series) 2001 DEPRESSION SCREENING 08/16/2023 COVID-19 VACCINE (1 - 2023-2 5 season) 2024 INFLUENZA VACCINE (#1) 2024 06/29/2022 ZOSTER VACCINE (1 of 2) 2032 HIB VACCINE Aged Out No longer eligi ble based on patient's age to complete this topic HPV VACCINE Aged Out No longer eligi ble based on patient's age to complete this topic MENINGOCOCCAL VACCINE Aged Out No jenise franky eligible based on patient's age to complete this topic PNEUMOCOCCAL VACCINE Aged Out No long er eligible based on patient's age to complete this topic Care Teams Quarrying Specialist Relationship Specialty Start Date End Date Quinton Burnett MD PCP - General Family Medicine 12/22/16
--- OUTSIDE RECORDS SUMMARY | 2024-08-05 20:22 | XMS_ITS | Encounter Summary ---
Author Organization [facility] Address [address] [place] [address] Care Team Providers Care Bolt Maker Name Role Phone Quinton Burnett MD Primary Care Provider [phone] Reason for Visit * Reason Comments Eye Problem redness, light sensi tivity Allergy Symptoms Encounter Details Date Type Department Care Team (Late st Contact Info) Description 12/22/2016 11:40 AM CDT Office Visit [facility] AT [address] [address] Provider, Kylie Jasmine [place] Purulent conjunctivitis of right eye (Primary Dx) Social History Tobacco Use Types Packs/Day Years Used Date Smoking Tobacco: Never Sex and Gender Information Value Date Recorded Sex Assigned at Not on file Gender Identity Not on file Sexual Orientation Not on file documented as of this encounter Last Filed Vital Signs Vital Sign Reading [...] Mass Index 25.07 12/22/2016 11:46 AM CDT documented in this encounter Patient Instructions * Patient Instructions* Patsy Woodard APRN-MICROBIOLOGY SUPERVISOR - 12/22/2016 11:58 AM CDT Images from the original note were not included. Conjunctivitis PSYCHIATRIC TECHNICIAN ASSISTANT: Conjunctivitis, or pink eye, is inflammation of your conjunctiva. The conjunctiva is a thin tissue that covers the front of your eye and the back of your eyelids. The conjunctiva helps protect your eye and keep it moist. Conjunctivitis may be caused by bacteria, allergies, or a virus. If your conjun ctivitis is caused by bacteria, it may get better on its own in about 7 days. Viral conjunctivitis can last up to 3 weeks. Common symptoms may include any of the following: You will usually have symptoms in both eyes if your conjunctivitis is caused by allergies. You may also have other allergic symptoms, such as a rash or runny nose. Symptoms will usually start in 1 eye if your conjunctivitis is caused by a virus or bacteria. ?? Redness in the whites of your eye ?? Itching in your eye or around your eye ?? Feeling like there is something in your eye ?? Watery or thick, sticky discharge ?? Crusty eyelids when you wake up in the morning ?? Burning, stinging, or swelling in your eye ?? Pain when you see bright light Seek care immediately if: ?? You have worsening eye pain. ?? The swelling in your eye gets worse, even after treatment. ?? Your vision suddenly becomes worse or you cannot see at all. Contact your healthcare provider if: ?? You develop a fever and ear pain. ?? You have tiny bumps or spots of blood on your eye. ?? You have questions or concerns about your condition or care. Treatment will depend on the cause of your conjunctivitis. You may need antibiotics or allergy medicine as a pill, eye drop, or eye ointment. Manage your symptoms: ?? Apply a cool compress. Wet a washcloth with cold water and place it on your eye. This will help decrease itching and irritation. ?? Do not wear contact lenses. They can irritate your eye. Throw away the pair you are using and ask when you can wear them again. Use a new pair of lenses when your healthcare provider says it is okay. ?? Avoid irritants. Stay away from smoke filled areas. Shield your eyes from wind and sun. ?? Flush your eye. You may need to flush your eye with saline to help decrease your symptoms. Ask for more information on how to flush your eye. Medicines: Treatment depends on what is causing your conjunctivitis. You may be given any of the following: ?? Allergy medicine helps decrease itchy, red, swollen eyes caused by allergies. It may be given asa pill, eye drops, or nasal spray. ?? Antibiotics may be needed if your conjunctivitis is caused by bacteria. This medicine may be given as a pill, eye drops, or eye ointment. ?? Take your medicine as directed. Contact your healthcare provider if you think your medicine is not helping or if you have side effects. Tell him or her if you are allergic to any medicine. Keep a list of the medicines, vitamins, and herbs you take. Include the amounts, and when and why you take them. Bring the list or the pill bottles to follow-up visits. Carry your medicine list with you in case of an emergency. Prevent the spread of conjunctivitis: ?? Wash your hands with soap and water often. Wash your hands before and after you touch your eyes.Also wash your hands before you prepare or eat food and after you use the bathroom or change a diaper. ?? Avoid allergens. Try to avoid the things that cause your allergies, such as pets, dust, or grass. ?? Avoid contact with others. Do not share towels or washcloths. Try to stay away from others as much as possible. Ask when you can return to work or school. ?? Throw away eye makeup. The bacteria that caused your conjunctivitis can stay in eye makeup. Throw away mascara and other eye makeup. ?? 2016 [employer]. Information is for End User's use only and may not be sold, redistributed or otherwise used for commercial purposes. All illustrations and images included in CareNotes?? are the copyrighted property of [employer] or [employer]. The above information is an hearing aid assembly supervisor only. It is not intended as medical advice for individual conditions or treatments. Talk to your doctor, nurse or pharmacist before following any medical regimen to see if it is safe and effective for you. documented in this encounter Progress Notes * Patsy Woodard APRN-CNP - 12/22/2016 11:54 AM CDT Subjective: Yehuda Jones is a 36 y.o. male who is presents to the clinic today for Chief Complaint Patient presents with ??? Eye Problem redness, light sensitivity ??? Allergy Symptoms . his Primary Care Physician is Quinton Burnett MD. He has noticed discharge, erythema in the right eye for 2 days. Onset was sudden. Patient denies pain, blurred vision, foreign body sensation, visualfield deficit, photophobia, itching. There is a history of contact lens use. Pt states he thought he had eye infection approx. 2-3 weeks ago, took out contacts and did not wear then for approx. 1 week, and the symptoms resolved on their own, his son also had same symptoms at that time which resolved on its own. Then approx. 2 days ago it started again in the right eye, with drainage and matting in am. Pt took out contacts when started again and has not improved since then. Past Medical History: Diagnosis Date ??? NEGATIVE PAST MEDICAL HISTORY - SEE PROBLEM LIST Past Surgical History: Procedure Laterality Date ??? HAND OR FINGER(S) TENDON REPAIR Family History Problem Relation Age of Onset ??? Negative Family History Mother ??? Negative Family History Father Social History Social History ??? Marital status: Spouse name: N/A ??? Number of children: N/A ??? Years of education: N/A Occupational History ??? Not on file. Social History Main Topics ??? Smoking status: Never Smoker ??? Smokeless tobacco: Not on file ??? Alcohol use Not on file ??? Drug use: Not on file ??? Sexual activity: Not on file Other Topics Concern ??? Not on file Social History Narrative ??? No narrative on file No Known Allergies Current Outpatient Prescriptions Medication Sig Dispense Refill ??? Fexofenadine-Pseudoephedrine (JOSE LUIS-D 12 HOUR PO) ??? ciprofloxacin 0.3% (CILOXAN) 0.3 % ophthalmic solution 1 Drop every 2 hours while awake for 7 days x2 days, then q4 hours while awake x5 days 5 mL 0 No current facility-administered medications for this visit. Review of Systems Pertinent items are noted in HPI Constitutional: Negative Eyes: right eye redness and drainage Ears, nose, mouth, and throat: Negative Respiratory: Negative Cardiovascular: Negative Gastrointestinal: Negative Genitourinary:Negative Skin: Negative Musculoskeletal:Negative Neurological: Negative Objective: BP 122/78 (BP SITE: LEFT ARM, BP POSITION: SITTING, BP CUFF SIZE: Adult) Pulse 63 Temp 98.4 ??F (Oral) Resp 16 Ht 1.854 m (6' 1 ) Wt 86.2 kg (190 lb) SpO2 98% BMI 25.07 kg/m2 Exam General appearance: alert, cooperative, no distress, oriented to person, place, and time, wellappearing Head: normocephalic, without trauma Eyes: left eye sclera and conjunctiva clear, EOMI and PERRLA, lids normal, Right Eye - eyelids/periorbital - wnl, conjunctivae/corneas - conjunctival injection and erythema, pupils - wnl Ears: canals clear, tympanic membranes normal, hearing intact to voice Nose: nares open; no septal deviation is noted, nasal mucosa not inflamed, no maxillary tenderness Throat: no mucous membrane abnormalities, lips, mucosa, and tongue normal; teeth and gums normal Neck: range of motion is intact, no masses, thyroid not enlarged, no adenopathy Lungs: breath sounds normal and symmetric; no rales or wheezes Heart: regular rhythm, normal S1 and S2, without murmurs, gallops or rubs Neurologic: mental status normal; alert and oriented X 3 Assessment: Encounter Diagnosis Name Primary? Purulent conjunctivitis of right eye Yes Plan: 1. Discussed the diagnosis and proper care of conjunctivitis. Stressed household hygiene., Ophthalmic drops per orders, warm compress to eye(s), local care for crusting discussed, return to clinic orAC is symptoms worsen or not resolving in 2 days 2. Patient instructions: contagiousness precautions 3. Risks and side effects of medications were discussed. 4. Pt advised to read written information provided by the pharmacist: yes 5. Follow-up as needed. 6. See below orders for referral to PCP if none on file. -If symptoms persist or worsen or if you begin to have any visual changes or eye pain, sensitivity to light, seek medical attention as soon as possible. You may follow up with an eye doctor of your choice. -Do not wear contacts until symptoms have resolved -Wash hands frequently -Wash bed linens (pillow case) frequently until symptoms have resolved. Orders Placed This Encounter ??? ciprofloxacin 0.3% (CILOXAN) 0.3 % ophthalmic solution Si Drop every 2 hours while awake for 7 days x2 days, then q4 hours while awake x5 days Dispense: 5 mL Refill: 0 No results found for this or any previous visit (from the past 24 hour(s)). documented in this encounter Plan of Treatment Not on file documented as of this encounter Visit Diagnoses Diagnosis Purulent conjunctivitis of right eye- Primary documented in this encounter Care Teams Bolt Maker Relationship Specialty Start Date End Date Quinton Burnett MD PCP - General Family Medicine 12/22/16 documented as of this encounter
--- OUTSIDE RECORDS SUMMARY | 2024-08-06 04:20 | XMS_ITS | Patient Health Summary ---
Author Organization [facility] Address [address] [place] [address] Care Team Providers Care Director Hedis Name Role Phone Quinton Burnett MD Primary Care Provider Note from [facility],non-owned Affiliates and Associated Physician Practices is amultiple site organization consisting of ambulatory clinics and hospital sitesin [place], [place], [place] and [place]. This disclosure is being madepursuant to the Care Everywhere program and may not contain all information available regarding this patient. Last updated 18.[facility] Allergies No known active allergies Medications [...] 25.07 12/22/2016 11:46 AM CDT Care Teams Director Hedis Relationship Specialty Start Date End Date Quinton Burnett MD PCP - General Family Medicine 12/22/16
--- OUTSIDE RECORDS SUMMARY | 2024-08-06 04:20 | XMS_ITS | Referral Summary ---
Author Organization [facility] [employer] Address [address] [place] [address] Care Team Providers Care Rn Clinical Appeals Name Role Phone Quinton Burnett MD Primary Care Provider [phone] Source Comments [facility] [employer],non-owned Affiliates and Associated Physician Practices is amultiple site organization consisting of ambulatory clinics and hospital sitesin [place], [place], [place] and [place]. This disclosure is being madepursuant to the Care Everywhere program and may not contain all information available regarding this patient. Last updated 18.[facility] [employer] Allergies No known active allergies Medications * [...] of Treatment Not on file Care Teams Rn Clinical Appeals Relationship Specialty Start Date End Date Quinton Burnett MD PCP - General Family Medicine 12/22/16
--- OUTSIDE RECORDS SUMMARY | 2024-08-06 04:20 | XMS_ITS | Encounter Summary ---
Author Organization [facility] Address [address] [place] [address] Care Team Providers Care Assurance Manager Name Role Phone Quinton Burnett MD Primary Care Provider [phone] Reason for Visit * Reason Onset Date Comments Follow-up 12/23/2016 Encounter Details Date Type Department Care Team (Late st Contact Info) Description 12/23/2016 Telephone [facility] AT [address] [address] Shila Dietrich Follow-up Social History [...] on filedocumented in this encounter Care Teams Assurance Manager Relationship Specialty Start Date End Date Quinton Burnett MD PCP - General Family Medicine 12/22/16 documented as of this encounter
--- OUTSIDE RECORDS SUMMARY | 2024-08-06 04:20 | XMS_ITS | Clinical Summary ---
Author Organization [facility] [employer] Address [address] [place] [address] Care Team Providers Care Feather Stitcher Name Role Phone Quinton Burnett MD Primary Care Provider [phone] [facility] [employer],non-owned Affiliates and Associated Physician Practices is amultiple site organization consisting of ambulatory clinics and hospital sitesin [place], [place] and [place]. This disclosure is being madepursuant to the Care Everywhere program and may not contain all information available regarding this patient. Last updated 18.[facility] [employer] Allergies No known active allergies Medications * [...] age to complete this topic Care Teams Feather Stitcher Relationship Specialty Start Date End Date Quinton Burnett MD PCP - General Family Medicine 12/22/16
--- OUTSIDE RECORDS SUMMARY | 2024-08-06 04:20 | XMS_ITS | Encounter Summary ---
Author Organization [facility] Address [address] [place] [address] Care Team Providers Care Radio Station Audio Engineer Name Role Phone Quinton Burnett MD Primary Care Provider [phone] Reason for Visit * Reason Comments Eye Problem redness, light sensi tivity Allergy Symptoms Encounter Details Date Type Department Care Team (Late st Contact Info) Description 12/22/2016 11:40 AM CDT Office Visit [facility] AT [address] [address] Provider, Kylie Jasmine [place] Purulent conjunctivitis of right eye (Primary Dx) [...] Patient Instructions * Patient Instructions* Patsy Woodard APRN-GAS METER READER - 12/22/2016 11:58 AM CDT Images from the original note were not included. Conjunctivitis CONE SEWER: Conjunctivitis, or pink eye, is inflammation of [...] mascara and other eye makeup. ?? 2016 [employer]. Information is for End User's use only and may not be sold, redistributed or otherwise used for commercial purposes. All illustrations and images included in CareNotes?? are the copyrighted property of [employer] or [employer]. The above information is an laundry aid only. It is not intended as medical [...] Primary documented in this encounter Care Teams Radio Station Audio Engineer Relationship Specialty Start Date End Date Quinton Burnett MD PCP - General Family Medicine 12/22/16 documented as of this encounter
== END 2024-08-04 17:30 | disposition home or self-care (01) | DRG 330 ==
LOC: ANHED 12:28 → ANH3MEDSUR 13:27
PROVIDERS: Nurse Practitioner Family; Admitting Provider Surgery; Emergency Provider Emergency Medicine; PCP Family Medicine; Visit Provider Surgery
PROC: 0DTJ4ZZ Resection of Appendix, Percutaneous Endoscopic Approach (ICD-10-PCS; CPT 44970; principal; 2024-07-31 16:00)
DX: K35.33 Acute appendicitis with perforation, localized peritonitis, and gangrene, with abscess (principal); K56.7 Ileus, unspecified; K91.89 Other postprocedural complications and disorders of digestive system; G47.33 Obstructive sleep apnea (adult) (pediatric); F32.9 Major depressive disorder, single episode, unspecified; F41.9 Anxiety disorder, unspecified; F10.90 Alcohol use, unspecified, uncomplicated
CPT/HCPCS: 36415; 74018; 74176; 74177; 80048; 80053; 81001; 83605; 83690; 83735; 84100; 85025; 85027; 85610; 85730; 86703; 86803; 87040; 87340; 88307; 96361; 96365; 96366; 96375; 99285; A9270; G0378; G0432; J0330; J1100; J1171; J1650; J1741; J1885; J2250; J2405; J2543; J2704; J3010; J7030; J7120; Q9967

== ENCOUNTER 2024-11-02 08:41 | Outpatient (CLI) | payer OTHER, SELFPAY ==
--- OUTSIDE RECORDS SUMMARY | 2024-11-02 08:51 | XMS_ITS | Clinical Summary ---
Author Organization [facility] [employer] Address [address] [place] [address] Care Team Providers Care Price Changer Name Role Phone Quinton Burnett MD Primary Care Provider [phone] Source Comments [facility] [employer],non-owned Affiliates and Associated Physician Practices is amultiple site organization consisting of ambulatory clinics and hospital sitesin [place], [place], [place] and [place]. This disclosure is being madepursuant to the Care Everywhere program and may not contain all informatio navailable regarding this patient. Last updated 18.[facility] [employer] Allergies No known active allergies Medications * [...] 65 12/22/2016 11:46 AM CDT Temperature 36.9 C (98.4 F) 12/22/2016 11:46 AM CDT Respiratory Rate 16 12/22/2016 11:46 AM CDT [...] of 3 - 19+ 3-dose series) 2001 COVID-19 VACCINE (1 - 2023-2 5 season) 2024 INFLUENZA VACCINE (#1) 2024 06/29/2022 DEPRESSION SCREENING 08/16/2024 ZOSTER VACCINE (1 of 2) 2032 HIB VACCINE Aged Out No longer eligi ble based on patient's age to complete this topic HPV VACCINE Aged Out No longer eligi ble based on patient's age to complete this topic MENINGOCOCCAL (Group B) VACC INE SHARED DECISION-MAKING Aged Out No longer eligibl e based on patient's age to complete this topic MENINGOCOCCAL GROUPS A/C/Y/W VACCINE Aged Out No longer eligible b ased on patient's age to complete this topic PNEUMOCOCCAL VACCINE Aged Out No long er eligible based on patient's age to complete this topic Care Teams Price Changer Relationship Specialty Start Date End Date Quinton Burnett MD PCP - General Family Medicine 12/22/16
--- NOTE | 2024-11-21 10:50 | WPDHOMESLEEP ---
Sleep Study - Home Unattended Date of Study: 11/02/24 Ordering Provider: Quinton Burnett MD Interpreting Provider: Princess Land, DO Home Sleep Study Type: Watch PAT Height: 1.85 m Weight: 97.522 kg Body Mass Index: 28.3 Neck Circumference (inches): 16 [place]: 9 Reason for Sleep Study Loud snoring, nocturnal gasping Sleep History The patient is a 43-year-old male that had a sleep study ordered by his primary care physician for evaluation of sleep apnea. The patient has been using an oral appliance made by his engineering program analyst for snoring. The patient constantly awakens from sleep short of breath. He denies awakening at night with heartburn, belching or cough. He constantly snores loudly enough that others complain. He constantly has trouble sleeping when he has a cold. He constantly wakes up gasping for air throughout the night. He constantly has breathing problems at night observed by himself or others. He rarely sweats excessively at night. He rarely has heart palpitations or irregular heartbeats during the night. He occasionally falls asleep during the day but never while driving. He denies sleep paralysis, cataplexy and hypnagogic/ hypnopompic hallucinations. He occasionally has trouble at school or work due to sleepiness. He denies feeling afraid of going to sleep. He denies having nightmares. He denies remembering his dreams. He frequently has thoughts racing through his mind. He frequently feels sad, depressed and anxious. He frequently has muscular tension. He occasionally notices parts of his body jerk. He occasionally kicks during the night. He denies having crawling and aching feelings in his legs but rarely has leg pain during the night. He constantly grinds his teeth during sleep and occasionally awakens with morning jaw pain. He is constantly bothered by pain during the day and occasionally awakened by pain during the night. He constantly wakes up feeling stiff in the morning. He constantly wakes up with sore or achy muscles. He rarely wakes up with pain in the neck, spine and other joints. He goes to bed at 9:00 p.m. on weekdays and at 10:00 p.m. on the weekends. It takes him a few minutes to fall asleep. He wakes up approximately 10 times throughout the night for unknown reasons. It takes him about 10 minutes to fall back asleep. He wakes up at 6:00 a.m. on weekdays and at 7:00 a.m. on the weekends. He typically gets 4-6 hours of sleep per night. He currently lives with his and 2 children. He denies consuming any caffeinated beverages within 2 hours of bedtime. He denies engaging in physical exercise before bedtime. He denies reading or watching television before falling asleep. He denies taking naps in afternoon or the evening. He consumes 1 cup of coffee every morning. He consumes 1-2 alcoholic beverages per day. He denies tobacco use. PMFSH Past Medical History Medical History Alcohol use disorder, mild, abuse Obstructive sleep apnea Major depressive disorder, recurrent, unspecified Anxiety Allergic rhinitis, unspecified Surgical History Surgical History H/O laparoscopy diagnostic laparoscopy converted to hand assisted laparoscopic ileocecectomy with mobilization of the hepatic flexure Wicho Franz MD S/P tendon repair right middle finger 1989 Family History Family History Father No problems noted. Mother No problems noted. Social History Social History Smoking status: Never smoker Alcohol intake: current Drinks per week: 60 Alcohol use details: 8-10 drinks per day Substance use: never Substance use type: does not use Do You Feel Safe in your Home?: Yes Lack of Transportation: No Lack of Food: Never True Current Housing: I Have Housing Concerned About Future Housing: No Difficulty Paying Gas/Electric Bills: No Difficulty Paying for Meds: No Currently Unemployed: No Education: Master's Degree or Higher Difficulty w/ Childcare or Family Care: No Living arrangements: with family Occupation/Education: occupation Additional occupation/education 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: 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 [employer], Bachelor's in Environmental biology and Masters in Business Administration Gender identity (if verbalized by the patient): Male Sexual Orientation (if Verbalized by the Patient): Straight or Heterosexual Spiritual care concerns: No Agree to blood products: Yes Medications Home Medications ?Medication ?Instructions ?Recorded ?Confirmed ?Type sdiravca-spd-qeqkc acid 0.4 tablet PO 08/20/22 09/12/24 History mg-lycopene 300 mcg-lutein 250 mcg tablet (Complete Multivitamin Adult 50 Plus) omega 3-dgj-azv-fish oil 1,200 mg cap PO 08/20/22 09/12/24 History (144 mg-216 mg) capsule (Fish Oil) B-complex with vitamin C 1 cap PO DAILY 09/12/24 09/12/24 History cholecalciferol (vitamin D3) 125 125 mcg PO DAILY 09/12/24 09/12/24 History mcg (5,000 unit) capsule naltrexone 50 mg tablet 50 mg PO DAILY #90 tabs 09/12/24 09/12/24 Rx testosterone 50 mg/5 gram (1 %) 1 tube transdermal QAM 09/12/24 09/12/24 History transdermal gel montelukast 10 mg tablet 10 mg PO DAILY #30 tabs 11/21/24 Rx Sleep Procedure The sleep study was completed using [employer] a technically adequate device with seven channels: peripheral arterial tone, actigraphy, body position, snore, respiratory movement, pulse oximetry, sleep staging, and heart rate. Prior to using the device, the patient received verbal and written instructions for its application and was provided with the help desk phone number for additional telephonic instruction with 24-hour availability of qualified personnel to answer questions. The study was scored using CMS guidelines. Sleep Architecture The total recording time is 9 hrs, 38 min. The total sleep time is 8 hrs, 59 min. Sleep latency is 17 minutes. REM latency is 74 minutes. The patient had 4 episodes of waking. Sleep architecture shows 20.8% deep sleep, 40.1% light sleep, and (as % Total Sleep Time) showed NREM (Light 40.1%; Deep 20.8%), and a 39.0% stage REM. The patient spent 74.6% of total sleep time in the supine position. Sleep efficiency was 93.25. Respiratory Analysis The overall AHI (pAHI 4%:) is 9.1. The overall AHI (pAHI 3%:) is 17.1. The central AHI is 1.0. The AHI was 9.9 in NREM and 28.3 in REM sleep. The AHI was 19.4 in Supine and 10.2 in Non-supine sleep. Percent of Jayme Potter respirations is 0.0. Oximetry Data The oxygen desaturation index (STAN 4%:) is 9.0. The mean saturation is 92%, and the lowest saturation is 81%. Time spent with saturation < 88% is 22.1 minutes. Snoring Profile Snoring average intensity is 45 dB. The patient snored above 45 decibels for 176.4 minutes, 32.7% of sleep time. Cardiac Profile The average pulse rate is 84 beats per minutes. The lowest pulse rate is 65 bpm. The highest pulse rate reported is 109 bpm. Atrial fibrillation was not detected. Premature beats occur <0.1 per minute. Assessment and Plan Assessment and Plan (1) Obstructive sleep apnea: Code(s): G47.33 - Obstructive sleep apnea (adult) (pediatric) Status: Chronic Assessment and Plan: The patient had an overall AHI of 9.1 with desaturation down to 81%. This is consistent with mild sleep apnea. Due to the patient's depression, he qualifies for treatment. The patient spent 22.1 minutes, 4.1% of total recording time with an oxygen saturation less than 88%. the amount of time the patient spent hypoxemic is out of proportion to the severity of his sleep apnea. Underlying lung conditions need to be ruled out. I recommend that the patient have a 2 view CXR and complete PFT for evaluation of underlying lung disease. Due to the amount of time spent with an SpO2<88%, I recommend that the patient have a CPAP Titration study to ensure that his hypoxemia resolves. I recommend that the patient a hypnotic available for the sleep study to ensure we obtain enough sleep data find an optimal pressure setting to resolve his sleep apnea. Data The data obtained during this sleep study is adequate for interpretation. Certification This sleep study has been reviewed by a board certified sleep medicine physician.
[2024-11-21 11:02] VITALS: BMI 28.3
== END 2024-11-03 11:24 | disposition home or self-care (01) ==
LOC: ANHCSM 08:41
PROVIDERS: PCP Family Medicine; Visit Provider Family Medicine
DX: G47.33 Obstructive sleep apnea (adult) (pediatric) (principal); F39 Unspecified mood [affective] disorder
CPT/HCPCS: 95800

== ENCOUNTER 2025-06-05 08:46 | Outpatient (CLI) | payer OTHER, SELFPAY ==
--- NOTE | ~2025-06-05 | CT_ITS ---
Exam: CT abdomen and pelvis without contrast Clinical History: [ Periumbilical pain x2-3 months ] Comparison: [ CT abdomen pelvis 08/04/2024] Technique: Multiple axial CT images of the abdomen and pelvis were obtained without IV contrast. Sagittal and coronal reformatted images were obtained. FINDINGS: Lung bases: [Clear ] Liver: [ No mass.] [ No intrahepatic biliary duct dilatation.] Gallbladder: [ No wall thickening or stones.] Common bile duct: [ Normal caliber.] [ No stones.] Spleen: [ Within normal limits.] Pancreas: [ No mass. No pancreatic fluid collection.] Adrenals: [ No masses.] Kidneys: [ No masses. No hydronephrosis.][ ] Lymph nodes: [ No adenopathy in the abdomen or pelvis.] Stomach, small bowel and colon: [ No bowel wall thickening or obstruction.] Anastomotic suture line in large bowel in the right lower abdomen. Peritoneum cavity: [ No mesenteric fat stranding or fluid.] Osseous structures: [ No acute fracture or destructive lesion.] [ Multilevel degenerative change in the visualized spine.] Abdominal aorta: [ No aneurysm.] Additional findings: There are 2 small fat-containing umbilical hernias at this visualized in the sagittal projection. IMPRESSION: 1. There are two small fat-containing umbilical hernias. Reviewed, dictated and finalized at location Q.
== END 2025-06-05 08:47 | disposition home or self-care (01) ==
LOC: MICIMG 08:47
PROVIDERS: PCP Family Medicine; Visit Provider Surgery
DX: K42.9 Umbilical hernia without obstruction or gangrene (principal)
CPT/HCPCS: 74150